=== PATIENT | female | born 1945 | race Caucasian/White ===

== ENCOUNTER 2019-04-26 15:06 | Emergency (ER) | payer MEDICARE, BC ==
[2019-04-26 15:34] VITALS: BP 126/66
--- NOTE | 2019-04-26 15:50 | UC ---
Skin Complaint HPI - HPI Summary HPI Summary: 73-year-old woman comes in with a chief complaint of blisters on her feet. Patient reports about a week ago she got bit by some insects and she ended up getting blisters. She tells me that this is a fairly common response to insect bites. She has 1 blister on the medial aspect of her right heel one just on her proximal right great toe and one on the lateral aspect of the left ankle. The patient is on Dilantin and the blister on the right medial foot turned red in the last 1 day. The one on a right great toe does have some erythema surrounding it. They itch there's been no pus drainage there has been some serous drainage from the right foot blister. No fevers or chills feels well otherwise. - History of Current Complaint Chief Complaint: UCSkin Time Seen by Provider: 04/26/19 15:35 Stated Complaint: RIGHT FOOT SKIN CONCERN Pain Intensity: 0 - Allergy/Home Medications Allergies/Adverse Reactions: Allergies Allergy/AdvReac Type Severity Reaction Status Date / Time gabapentin Allergy out of Verified 04/26/19 15:16 body experience morphine Allergy convulsions Verified 04/26/19 15:16 Home Medications: Home Medications Carvedilol TAB* [Coreg TAB*] 12.5 mg PO BID 04/26/19 [History Confirmed 04/26/19 ] Rosuvastatin Calcium 5 mg PO QPM 04/26/19 [History Confirmed 04/26/19] Ticagrelor* [Brilinta*] 90 mg PO BID 04/26/19 [History Confirmed 04/26/19] PMH/Surg Hx/FS Hx/Imm Hx Previously Healthy: Yes Endocrine History: Hypothyroidism Cardiovascular History: Hypertension Other Cardiovascular History: ON BR[place] - Surgical History Surgical History: Yes Surgery Procedure, Year, and Place: left arm surgery age 18yrs. partial hysterectomy - Family History Known Family History: Positive: Hypertension - Social History Alcohol Use: Daily Alcohol Amount: 1 wine daily Substance Use Type: None Smoking Status (MU): Former Smoker When Did the Patient Quit Smoking/Using Tobacco: 50 years ago - Immunization History Most Recent Influenza Vaccination: not this season Most Recent Tetanus Shot: Unknown, pt thinks within 10 yrs Review of Systems All Other Systems Reviewed And Are Negative: Yes Constitutional: Positive: Negative Skin: Positive: Other - SEE HPI Eyes: Positive: Negative ENT: Positive: Negative Respiratory: Positive: Negative Cardiovascular: Positive: Negative Gastrointestinal: Positive: Negative Motor: Positive: Negative Neurovascular: Positive: Negative Musculoskeletal: Positive: Negative Neurological: Positive: Negative Psychological: Positive: Negative Is Patient Immunocompromised?: No Physical Exam Triage Information Reviewed: Yes Appearance: Well-Appearing, No Pain Distress, Well-Nourished Vital Signs: Initial Vital Signs Temp 98 F 04/26/19 15:25 Pulse 73 04/26/19 15:25 Resp 20 04/26/19 15:25 BP 126/66 04/26/19 15:25 Pulse Ox 97 04/26/19 15:25 Vital Signs Reviewed: Yes Eye Exam: Normal Eyes: Positive: Conjunctiva Clear Neck: Positive: Supple Respiratory: Positive: No respiratory distress Musculoskeletal: Positive: Strength Intact, ROM Intact Neurological: Positive: Alert, Muscle Tone Normal Psychological: Positive: Age Appropriate Behavior Skin: Positive: Other - 3CM RAISED BLISTER WITH SEROSANGUINOUS FLUID WITH MILD DRAINAGE RT MEDIAL FOOT DISTAL TO ANKLE. CX & S DONE ON THIS FLUID. 1CM RAISED BLISTER WITH SEROUS FLUID ON AN ERYTHEMATOUS BASE ON PROXIMAL DORSAL RT GREAT TOE. 1CM RAISED BLISTER WITH SEROUS FLUID ON LEFT LATERAL PROXIMAL FOOT JUST DISTAL TO ANKLE. Course/Dx - Course Course Of Treatment: The patient reports she has a blister reaction to some insect bites. One blister has serosanguineous fluid in it indicating some bleeding. Patient is on brilinta. The drainage from the right foot blister I cultured. The blister on the right great toe does have an erythematous base bringing up the possibility of infection therefore patient's pain started on Keflex 500 mg by mouth 3 times a day for 7 days. Overall the plan is dressings and protection and letting the blisters heal up and get reevaluated if worse or any questions or concerns. - Diagnoses Provider Diagnosis: Blistered skin Discharge - Sign-Out/Discharge Documenting (check all that apply): Patient Departure All imaging exams completed and their final reports reviewed: No Studies - Discharge Plan Condition: Stable Disposition: HOME Prescriptions: Cephalexin CAP* [Keflex CAP*] 500 mg PO TID #21 cap Patient Education Materials: Blister (ED) Referrals: Sedrick Herman MD [Primary Care Provider] - Additional Instructions: FOLLOW UP WITH YOUR DOCTOR IF NOT COMPLETELY IMPROVED. GET RECHECKED SOONER IF YOUR CONDITION WORSENS; SIGNS OF INFECTION OR ANY QUESTIONS OR CONCERNS. - Billing Disposition and Condition Condition: STABLE Disposition: Home
== END 2019-04-26 15:59 | disposition home or self-care (01) ==
LOC: UCCORT 15:06
DX: S90.424A Blister (nonthermal), right lesser toe(s), initial encounter (principal); S90.822A Blister (nonthermal), left foot, initial encounter; S90.821A Blister (nonthermal), right foot, initial encounter; W57.XXXA Bitten or stung by nonvenomous insect and other nonvenomous arthropods, initial encounter; Y92.9 Unspecified place or not applicable; I10 Essential (primary) hypertension; Z79.01 Long term (current) use of anticoagulants; Z87.891 Personal history of nicotine dependence
CPT/HCPCS: 87070; 87205; 99212; G0463

== ENCOUNTER 2019-06-02 08:51 | Emergency (ER) | payer MEDICARE, BC ==
[2019-06-02 09:10] VITALS: BP 211/104
--- OUTSIDE RECORDS SUMMARY | 2019-06-02 09:14 | XMS REPORT | Continuity of Care Document ---
:1945 External Reference #:[id number] Author Name Jose Jinlie Care Team Providers Name Role Phone Sedrick Herman MD Primary Care Physician Unavailable Payers Date Identification Numbers Payment Provider Subscriber Effective: 2008 Policy Number: [id number] Medicare Blaire Meneses PayID: [id number] [address] [place] [address] Policy Number: [id number] [facility] Blaire Johnny Gideon Group Number: [id number] [address] [address] PayID: [id number] [place] [address] Problems Active Problems Provider Date Asthma without status asthmaticus Sedrick Herman MD Onset: 06/25/2011 Mitral valve disorder Sedrick Herman MD Onset: 06/25/2011 Benign hypertensive heart disease without congestive Sedrick Herman MD Onset: heart failure Hypothyroidism Sedrick Herman MD Onset: 06/25/2011 Inflammatory polyarthropathy Sedrick Herman MD Onset: 04/07/2012 Arthralgia of the pelvic region and thigh Sedrick Herman MD Onset: 03/30/2013 Family History Date Family Member(s) Observation Comments General Colon Polyps General Breast Cancer General Stomach Cancer General Diabetes Mellitus, II General Uterine Cancer General Depression Father due to Natural Causes () Father CAD, CABG Age 72 Mother Breast Cancer, Stomache Cancer,Low Glucose, Etoh,Tobacco First Brother Unknown First Sister Tumor Pituitary Gland, Polyposis Multiple Paternal Grandfather CAD/NV Paternal Grandmother Colon Cancer, Stomache Cancer Maternal Grandmother No Illnesses Aunt Breast Cancer Social History Type Date Description Comments Sex Unknown Marital Status Occupation Retired teacher ETOH Use Consumes 4 glasses of wine per week Tobacco Use Start: Unknown End: Unknown Patient is a former smoker Allergies, Adverse Reactions, Alerts Active Allergies Reaction Severity Comments Date Morphine 07/09/2008 Neurontin 07/09/2008 Lexapro 06/18/2014 Medications Active Medications SIG Qnty Indications Ordering Date Provider Carvedilol 1 by mouth twice 60tabs Sedrick Herman MD 05/10/2019 12.5mg Tablets a day Nitroglycerin 1 sl every 5 min 25tafestus Herman MD 05/10/2019 0.4mg as needed Tablets Sub Diovan HCT 1 by mouth every Sedrick Herman MD 07/22/2018 160-25mg day Tablets Vitamin D-3 Super daily otc Sedrick Herman MD 02/19/2010 Strength 2000Unit Tablets Loratadine 1 PO qd prn 90tafestus Herman MD 07/09/2008 10mg Tablets Aspir-81 qd 90tafestus Herman MD 07/09/[address] Briones 1 by mouth every 10tafestus Herman MD 5mg Tablets day Probiotic 1 by mouth every Unknown Capsules day as directed Synthroid tab 1 by mouth Unknown 88mcg Tablets every day on empty stomache Brilinta bid Unknown 90mg Tablets Rosuvastatin Calcium tab 1 by mouth Unknown 10mg every at bedtime Tablets History Medications Atorvastatin Calcium 1 by mouth every 90tafestus Herman MD 05/10/2019 - 10mg Tablets day 05/10/2019 Triamcinolone Acetonide apply twice a day 160gm Sedrick Herman MD 07/21/2018 - 0.025% to affected area 05/10/2019 Cream as needed Levofloxacin tab 1 by mouth 10tafestus Herman MD 04/27/2018 - 500mg Tablets every day 07/21/2018 Cefuroxime Axetil tab 1 by mouth 20tafestus Herman MD 06/21/2017 - 500mg Tablets twice a day 10 07/21/2018 days Diovan Tab 1 PO Q Day 90tafestus Herman MD 05/11/2016 - 160mg Tablets 07/22/2018 Lexapro 1 by mouth every 90tabs Sedrick Herman MD 06/13/2014 - 5mg Tablets day 06/18/2014 Diflucan tab 1 by mouth 3tabs Sedrick Herman MD 06/13/2014 - 200mg Tablets every day for 3 06/18/2014 days Nystatin-Triamcinolone apply affected 30gm Sedrick Herman MD 06/13/2014 - area as indicated 05/10/2017 856621-2.1Unit/GM-% Cream Diovan HCT 1 po qd 90tabs Sedrick Herman MD 04/05/2013 - 160-25mg Tablets 05/11/2016 Vesicare 1 po qd 90tabs Sedrick Herman MD 03/28/2013 - 10mg Tablets 05/31/2014 Zostavax injection as 1units Sedrick Herman MD 03/28/2013 - [id number]/0.65ML Solution ordered 05/10/2017 Rec Ceftin 1 po bid for 7 14tabs Sedrick Herman MD 04/07/2012 - 250mg Tablets days 03/28/2013 Synthroid 1 by mouth every 90tabs Sedrick Herman MD 03/31/2012 - 75mcg Tablets day on empty 07/21/2018 stomach Aciphex 1 po qd 90tafestus Herman MD 06/25/2011 - 20mg Tablets DR 10/09/2011 Ammonium Lactate as needed for dry 2unnatalie Herman MD 10/09/2010 - 12% Cream skin 05/10/2017 Ultram one every 6 hours 60tafestus Herman MD 10/06/2010 - 50mg Tablets as needed for 02/23/2011 pain Scopolomine Patch apply as directed 28unnatalie Herman MD 09/12/2010 - 1.5mg and change q 72 03/28/2013 hrs Paroxetine HCL 1 po qd needs to 90tafestus Herman MD 05/28/2010 - 10mg Tablets crush pills 10/09/2010 Lexapro 1 po qd 90tafestus Herman MD 05/26/2010 - 5mg Tablets 05/28/2010 Famvir 1 po tid 21tafestus Herman MD 02/19/2010 - 500mg Tablets 05/26/2010 Ceftin 1 po bid 10tabs Sedrick Herman MD 02/19/2010 - 500mg Tablets 05/26/2010 Levaquin 1 po qd 10tabs Elyn Ring, 09/19/2009 - 500mg Tablets 02/19/2010 Astelin 2 spray to each 5ml Elyn Ring, 06/18/2009 - 137mcg/[place] Solution nostril prn 06/18/2009 Fluocinonide-E apply to affected 15Grams Elleena Ring, 06/18/2009 - 0.05% Cream areas bid prn 02/19/2010 Promethazine HCL q 8 tabs prn 32tabs Elyn Virgil, 02/28/2009 - 25mg Tablets nausea 05/26/2010 Meclizine HCL 1-2 tabs po tid 180tabs Sedrick Herman, 02/28/2009 - 12.5mg Tablets prn 05/26/2010 Levaquin 1 po qd 10tabs Elyn MD Virgil 01/22/2009 - 500mg Tablets 02/28/2009 Scopolomine Patch aply prn 30units Sedrick Hreman MD 08/20/2008 - 1.5mg 05/26/2010 Diovan HCT 1 po qd 90tabs Elyn Ring, 08/06/2008 - 160/25mg Tablets 04/05/2013 Claritin 1 PO QHS 30tabs Sedrick Herman, 08/06/2008 - 10mg Tablets 02/28/2009 Cipro 1 PO bid 10tabs Elleena Herman MD 07/13/2008 - 500mg Tablets 08/06/2008 Ditropan XL 1 PO qd 90tabs Elyn MD Virgil 07/09/2008 - 10mg Tablets ER 24HR 06/18/2009 Mobic 1 po qd 90tabs Elyn Ring, 07/09/2008 - 7.5mg Tablets 10/09/2011 Synthroid 1 po qd 90tabs Elyn Ring, 07/09/2008 - 50mcg Tablets 03/31/2012 Hydrochlorothiazide 1 PO qd 90tabs Elyn Ring, 07/09/2008 - 25mg Tablets 08/06/2008 Diovan 1 PO qd 90tabs Elyn RingMD 07/09/2008 - 80mg Tablets 08/06/2008 Fosamax 1 qweek 12tabs Elyn RingMD 07/09/2008 - 70mg Tablets 02/19/2010 Astelin 2 [place] To Each 5ml Blake Loja - 137mcg/[place] Solution Nostril prn. In M.D. 06/21/2017 place of the Rhinocort Rhinocort Aqua 1 spray to each 3units Blake Loja - 32mcg/Act Suspension nare qpm M.D. 06/21/2017 Immunizations CPT Code Status Date Vaccine Reaction Lot # [id number] Given 07/27/2013 Influenza Virus Vaccine Done through [facility] [id number] (History Only) 21675 Given 03/28/2013 Tetanus,Diphtheria,Adut/ Adol Pertussis 93406 Given 11/01/2012 [place] [address] Given 06/18/2009 Influenza Vaccine [id number] Vital Signs Date Vital Result Comment 05/10/2019 12:13pm BP Systolic 120 mmHg BP Diastolic 74 mmHg Heart Rate 70 /min Height 62.5 inches 5'2.50" Weight 155.00 lb BMI (Body Mass Index) 27.9 kg/m2 O2 % BldC Oximetry 93 % 07/21/2018 1:03pm BP Systolic 120 mmHg BP Diastolic 74 mmHg Height 62.5 inches 5'2.50" Weight 153.00 lb BMI (Body Mass Index) 27.5 kg/m2 04/27/2018 10:07am BP Systolic 138 mmHg BP Diastolic 70 mmHg Weight 154.00 lb 06/21/2017 2:48pm BP Systolic 124 mmHg BP Diastolic 70 mmHg 05/10/2017 11:10am BP Systolic 138 mmHg BP Diastolic 80 mmHg Heart Rate 76 /min Height 62 inches 5'2" Weight 150.00 lb BMI (Body Mass Index) 27.4 kg/m2 05/11/2016 2:10pm BP Systolic 124 mmHg BP Diastolic 70 mmHg Height 65 inches 5'5" Weight 145.00 lb BMI (Body Mass Index) 24.1 kg/m2 04/15/2016 9:59am BP Systolic 128 mmHg BP Diastolic 70 mmHg 06/18/2014 9:26pm BP Systolic 132 mmHg BP Diastolic 76 mmHg 06/13/2014 3:53pm BP Systolic 132 mmHg BP Diastolic 80 mmHg 05/31/2014 11:19am BP Systolic 146 mmHg BP Diastolic 80 mmHg Height 64 inches 5'4" 03/30/2013 2:41pm BP Systolic 122 mmHg BP Diastolic 76 mmHg 03/28/2013 10:09am BP Systolic 130 mmHg BP Diastolic 80 mmHg Height 64 inches 5'4" Weight 140.00 lb BMI (Body Mass Index) 24.0 kg/m2 07/19/2012 1:27pm BP Systolic 120 mmHg BP Diastolic 75 mmHg 07/19/2012 1:04pm Weight 139.00 lb 04/07/2012 12:49pm BP Systolic 130 mmHg BP Diastolic 80 mmHg 03/31/2012 1:02pm BP Systolic 138 mmHg BP Diastolic 62 mmHg Weight 138.00 lb 10/09/2011 1:25pm BP Systolic 130 mmHg BP Diastolic 76 mmHg Height 63 inches 5'3" Weight 146.00 lb BMI (Body Mass Index) 25.9 kg/m2 06/25/2011 11:08am BP Systolic 120 mmHg BP Diastolic 70 mmHg Height 63 inches 5'3" Weight 139.00 lb BMI (Body Mass Index) 24.6 kg/m2 02/23/2011 10:32am BP Systolic 130 mmHg BP Diastolic 80 mmHg Height 63 inches 5'3" Weight 139.00 lb BMI (Body Mass Index) 24.6 kg/m2 10/06/2010 1:49pm BP Systolic 140 mmHg BP Diastolic 80 mmHg Weight 140.00 lb 06/09/2010 1:19pm BP Systolic 120 mmHg BP Diastolic 80 mmHg 05/26/2010 12:28pm BP Systolic 126 mmHg BP Diastolic 84 mmHg Weight 132.00 lb 02/19/2010 12:37pm BP Systolic 110 mmHg BP Diastolic 60 mmHg 02/19/2010 12:07pm Body Temperature 98.4 F Weight 136.00 lb 10/14/2009 3:13pm BP Systolic 122 mmHg BP Diastolic 60 mmHg Height 63 inches 5'3" Weight 146.00 lb BMI (Body Mass Index) 25.9 kg/m2 09/19/2009 10:17am BP Systolic 138 mmHg BP Diastolic 80 mmHg Body Temperature 98.2 F Weight 146.00 lb 06/18/2009 1:55pm BP Systolic 112 mmHg BP Diastolic 70 mmHg Weight 146.00 lb 02/28/2009 12:18pm BP Systolic 120 mmHg BP Diastolic 70 mmHg Height 63 inches 5'3" Weight 144.00 lb BMI (Body Mass Index) 25.5 kg/m2 01/22/2009 2:59pm BP Systolic 152 mmHg BP Diastolic 98 mmHg Body Temperature 97.7 F Height 63 inches 5'3" O2 % BldC Oximetry 95 % room air 11/26/2008 12:18pm BP Systolic 118 mmHg BP Diastolic 76 mmHg Height 63 inches 5'3" Weight 150.00 lb BMI (Body Mass Index) 26.6 kg/m2 08/20/2008 10:43am BP Systolic 132 mmHg BP Diastolic 70 mmHg Height 63 inches 5'3" Weight 146.00 lb BMI (Body Mass Index) 25.9 kg/m2 08/06/2008 2:41pm BP Systolic 132 mmHg BP Diastolic 74 mmHg Height 63 inches 5'3" Weight 148.00 lb BMI (Body Mass Index) 26.2 kg/m2 07/09/2008 2:42pm BP Systolic 122 mmHg BP Diastolic 88 mmHg Height 63 inches 5'3" Weight 144.00 lb BMI (Body Mass Index) 25.5 kg/m2 Results Test Date Facility Test Result H/L Range Note Wound 04/26/2019 [facility] - Metaps Wound/Misc SEE RESULT 1, 2 Culture/[facility] [address] [place] [address] Stain [phone] Laboratory test 04/12/2019 [facility] Troponin-I 0.037 ng/mL 3, [address] [place] [address] [phone] Aot Request 04/12/2019 [facility] Aot Request Test(s ) added 5, [address] [place] [address] [phone] Tests to be added: bnp, ddimer CBS W/Automated 04/12/2019 [facility] White 4.4 K/uL Normal 3.1-10.[address] [place] [address] Count [phone] Red Blood Count 4.90 M/uL Normal 3.90-5.40 Hemoglobin 14.7 gm/dL Normal 11.6-15.8 Hematocrit 43.0 % Normal 36.0-46.1 Mean Cell Volume 87.8 fl Normal 80.9-99.0 Mean Corpuscular HGB 30.0 pg Normal 25.9-32.7 Mean Corpuscular HGB Conc 34.2 g/dL Normal 30.8-34.3 Platelet Count 288 K/uL Normal 155-360 Red Cell Distri Width SD 42.7 fl Normal 36-47 Red Cell Distri Width %CV 13.3 % Normal 11.7-14.4 Mean Platelet Volume 11.4 fl Normal 8.9-12.4 Neut% 55.4 % Normal 40.4-72.8 Lymph % 28.5 % Normal 20.0-42.0 [place] % 9.3 % Normal 4.3-13.2 Eo% 5.5 % Normal 0.0-6.6 Bas% 1.1 % Normal 0.0-1.1 Immature Grans 0.2 % Normal 0.0-5.0 NRBC % 0.0 /100WBC < 10/ 100 WBC Neut# 2.43 K/uL Normal 1.8-7.0 Lymph # 1.25 K/uL Normal 1.0-4.0 [place] # 0.41 K/uL Normal 0.3-0.9 Eos # 0.24 K/uL Normal 0.0-0.5 Baso # 0.05 K/uL Normal 0.0-0.1 Immature Grans Absolute 0.01 K/uL NRBC # 0.00 K/uL Comprehensive Metabolic 04/22/2016 [facility] Glucose 88 mg/dL 74-[address] [place], [place] [id number] [phone] BUN 16 mg/dL 7-18 Creatinine 0.8 mg/dL 0.6-1.3 Glom Filtration Rate, Estimate >60 mL/min >60 If >60 mL/min >60 7 BUN/Creat 20.0 ratio Sodium 141 mmol/L 136-145 Potassium 3.4 mmol/L Low 3.5-5.1 Chloride 105 mmol/L 98-107 Carbon Dioxide 30 mmol/L 21-32 Anion Gap 6 mEq/L Low 8-16 Calcium 9.0 mg/dL 8.5-10.1 Total Protein 7.9 g/dL 6.4-8.2 Albumin 3.9 g/dL 3.4-5.0 Globulin 4.0 g/dL 1.9-4.3 Alb/Glob 1.0 ratio Bilirubin,Total 0.4 mg/dL 0.2-1.0 Sgot/Ast 28 U/L 15-37 SGPT/Alt 36 U/L 12-78 Alkaline Phosphatase 101 U/L 45-117 Laboratory test finding 04/22/2016 [facility] CK 136 U/L 26-[address] [place] [address] [phone] Troponin-I < 0.015 ng/mL 9 TSH Reflex FT4 and/or FT3 3.15 uIU/mL 0.30-4.20 10 CBC W/Automated 04/22/2016 [facility] White Blood 3.2 K/uL 3.1-10.[address] [place] [address] [phone] Red Blood Count 5.66 M/uL High 3.90-5.40 Hemoglobin 16.1 gm/dL High 11.6-15.8 Hematocrit 47.9 % High 36.0-46.1 Mean Cell Volume 84.6 fl 80.9-99.0 Mean Corpuscular HGB 28.4 pg 25.9-32.7 Mean Corpuscular HGB Conc 33.6 g/dL 30.8-34.3 Platelet Count 288 K/uL 155-360 Red Cell Distri Width SD 41.7 fl 3-47 Red Cell Distri Width %CV 13.4 % 11.7-14.4 Mean Platelet Volume 11.1 fL 8.9-12.4 Neut% 35.8 % Low 40.4-72.8 Lymph % 41.1 % 17.0-46.1 [place] % 13.9 % High 4.3-13.2 Eo% 7.3 % High 0.0-6.6 Bas% 1.9 % High 0.0-1.1 Neut# 1.13 K/uL Low 1.8-7.0 Lymph # 1.30 K/uL Low 1.8-7.0 [place] # 0.44 K/uL 0.3-0.9 Eos # 0.23 K/uL 0.0-0.5 Baso # 0.06 K/uL 0.0-0.1 Laboratory test 04/22/2016 [facility] D-Dimer, < 0.22 [address] Quantitative ug/[place] [address] [phone] Basic Metabolic 06/06/2014 [facility] Glucose 79 mg/ dL 76-[address] [place] [address] [phone] BUN 18 mg/dL 5-23 Creatinine 0.9 mg/dL 0.5-1.4 Glom Filtration Rate, Estimate >60 mL/min >60 If >60 mL/min >60 12 BUN/Creat 20.0 ratio Sodium 139 mmol/L 136-145 Potassium 3.5 mmol/L 3.5-5.1 Chloride 105 mmol/L 98-107 Carbon Dioxide 28 mEq/L 18-29 Anion Gap 10 mEq/L 8-16 Calcium 9.0 mg/dL 8.5-10.1 Laboratory test 06/06/2014 [facility] Thyroid Stim 1.79 uIU/mL 0.49-4.[address] [place] [place] [address] [phone] Free T4 1.27 ng/dL 0.71-1.85 CBS W/Automated 06/06/2014 [facility] White Blood 3.8 K/uL 3.1-10.[address] [place] [address] [phone] Red Blood Count 4.81 M/uL 3.90-5.40 Hemoglobin 14.5 gm/dL 11.6-15.8 Hematocrit 41.6 % 36.0-46.1 Mean Cell Volume 86.5 fl 80.9-99.0 Mean Corpuscular HGB 30.1 pg 25.9-32.7 Mean Corpuscular HGB Conc 34.9 g/dL High 30.8-34.3 Platelet Count 308 K/uL 155-360 Red Cell Distri Width SD 42.6 fl 3-47 Red Cell Distri Width %CV 13.7 % 11.7-14.4 Mean Platelet Volume 11.1 fL 8.9-12.4 Neut% 46.3 % 40.4-72.8 Lymph % 33.5 % 17.0-46.1 [place] % 12.9 % 4.3-13.2 Eo% 5.5 % 0.0-6.6 Bas% 1.8 % High 0.0-1.1 Neut# 1.75 K/uL 1.0-7.0 Lymph # 1.27 K/uL 0.8-3.4 [place] # 0.49 K/uL 0.3-0.9 Eos # 0.21 K/uL 0.0-0.5 Baso # 0.07 K/uL 0.0-0.1 Vitamin D, 25 03/22/2013 [facility] Vitamin 47 ng/mL 30-100 [address] D,25-Oh,[place] [address] [phone] Vitamin D,25-Oh,D3 47 ng/mL Vitamin D,25-Oh,D2 <4 ng/mL 14 Comp Metabolic Panel 03/22/2013 [facility] Sodium 140 mmol/L 135-[address] [place] [address] [phone] Potassium 4.1 mmol/L 3.5-5.3 Chloride 106 mmol/L 98-110 Carbon Dioxide 26 mmol/L 19-30 Calcium 9.6 mg/dL 8.6-10.4 Alkaline Phosphatase 70 U/L 33-130 Ast 24 U/L 10-35 Alt 18 U/L 6-40 Bilirubin,Total 0.6 mg/dL 0.2-1.2 Glucose 82 mg/dL 65-99 15 Urea Nitrogen 20 mg/dL 7-25 Creatinine 0.73 mg/dL 0.50-0.99 16 BUN/Creatinine Ratio 26.7 High 6-22 Protein,Total 6.8 g/dL 6.1-8.1 Albumin 4.2 g/dL 3.6-5.1 Globulin,Calculated 2.6 g/dL 1.9-3.7 A/G Ratio 1.6 1.0-2.5 Egfr Non-Afr. Turk[place] 84 ML/MIN/1.73M2 > Or=60 Egfr 97 ML/MIN/1.73M2 > Or=60 Lipid Panel 03/22/2013 [facility] Cholesterol 181 mg/dL 125-[address] [place] [address] [phone] HDL Cholesterol 57 mg/dL > Or=46 Cholesterol/HDL Ratio 3.2 < Or=5.0 LDL Chol,Calculated 100 mg/dL <130 17 Triglycerides 120 mg/dL <150 Non-HDL Cholesterol 124 mg/dL 18 TSH & T4,Free 03/22/2013 [facility] TSH 3.80 mIU/L 0.40-4.50 19 [address] [facility] [place] [address] [phone] T4,Free 1.4 ng/dL 0.8-1.8 20 CBC W/ Diff & PLT 03/22/2013 [facility] WBC 3.8 thous/L 3.8-10.[address] [place] [address] [phone] RBC 4.88 mill/L 3.80-5.10 Hemoglobin 14.8 g/dL 11.7-15.5 Hematocrit 44.2 % 35.0-45.0 MCV 90.7 FL 80.0-100.0 MCH 30.3 pg 27.0-33.0 MCHC 33.3 g/dL 32.0-36.0 RDW 14.4 % 11.0-15.0 Platelet Count 251 thous/L 140-400 Neutrophils,Absolute 2230 cells/L 0112-4391 Lymphocytes,Absolute 930 cells/L 850-3900 Monocytes,Absolute 370 cells/L 200-950 Eosinophils,Absolute 240 cells/L 15-500 Basophils,Absolute 30 cells/L 0-200 Total Neutrophils,% 59 % 38-80 Total Lymphocytes,% 24 % 15-49 Monocytes,% 10 % 0-13 Eosinophils,% 6 % 0-8 Basophils,% 1 % 0-2 Hepatic Function 03/22/2013 [facility] Alkaline Phosphatase 70 U/L 33- 130 Panel [address] [facility] [place] [address] [phone] Ast 24 U/L 10-35 Alt 18 U/L 6-40 Bilirubin,Total 0.6 mg/dL 0.2-1.2 Bilirubin,Direct 0.1 mg/dL < Or=0.2 Protein,Total 6.8 g/dL 6.1-8.1 Albumin 4.2 g/dL 3.6-5.1 Globulin,Calculated 2.6 g/dL 1.9-3.7 A/G Ratio 1.6 1.0-2.5 TSH & T4,Free 07/11/2012 [facility] TSH 2.37 mIU/L 0.40-4.50 [address] [place], [place] [id number] [phone] T4,Free 1.5 ng/dL 0.8-1.8 Laboratory test 03/11/2012 [facility] T3,Free 2.6 pg/mL 2.3-4.2 [address] [place], [place] [id number] [phone] TSH & T4,Free 03/11/2012 [facility] TSH 4.57 mIU/L High 0.40-4.50 [address] [place], [place] [id number] [phone] T4,Free 1.2 ng/dL 0.8-1.8 Comp Metabolic Panel 10/02/2011 [facility] Sodium 138 mmol/L 135-[address] [place], [place] [id number] [phone] Potassium 3.8 mmol/L 3.5-5.3 Chloride 103 mmol/L 98-110 Carbon Dioxide 28 mmol/L 21-33 Calcium 9.4 mg/dL 8.6-10.2 Alkaline Phosphatase 71 U/L 33-130 Ast 32 U/L 10-35 Alt 27 U/L 6-40 Bilirubin,Total 0.7 mg/dL 0.2-1.2 Glucose 72 mg/dL 65-99 23 Urea Nitrogen 25 mg/dL 7-25 Creatinine 0.70 mg/dL 0.60-1.18 BUN/Creatinine Ratio 35.0 High 6-22 Protein,Total 6.8 g/dL 6.2-8.3 Albumin 4.3 g/dL 3.6-5.1 Globulin,Calculated 2.5 g/dL 2.2-3.9 A/G Ratio 1.8 1.0-2.1 Egfr Non-Afr. Turk[place] 89 ML/MIN/1.73M2 > Or=60 Egfr 103 ML/MIN/1.73M2 > Or=60 CBC W/ Diff & PLT 10/02/2011 [facility] WBC 3.3 thous/L Low 3.8-10.[address] [place] [address] [phone] RBC 4.57 mill/L 3.80-5.10 Hemoglobin 13.9 g/dL 11.7-15.5 Hematocrit 41.3 % 35.0-45.0 MCV 90.4 FL 80.0-100.0 MCH 30.4 pg 27.0-33.0 MCHC 33.6 g/dL 32.0-36.0 RDW 13.8 % 11.0-15.0 Platelet Count 257 thous/L 140-400 Neutrophils,Absolute 1600 cells/L 0158-0930 Lymphocytes,Absolute 1150 cells/L 850-3900 Monocytes,Absolute 330 cells/L 200-950 Eosinophils,Absolute 160 cells/L 15-500 Basophils,Absolute 50 cells/L 0-200 Total Neutrophils,% 49 % 38-80 Total Lymphocytes,% 35 % 15-49 Monocytes,% 10 % 0-13 Eosinophils,% 5 % 0-8 Basophils,% 2 % 0-2 Hepatic Function 10/02/2011 [facility] Alkaline Phosphatase 71 U/L 33- 130 Panel [address] [place] [address] [phone] Ast 32 U/L 10-35 Alt 27 U/L 6-40 Bilirubin,Total 0.7 mg/dL 0.2-1.2 Bilirubin,Direct 0.1 mg/dL < Or=0.2 Protein,Total 6.8 g/dL 6.2-8.3 Albumin 4.3 g/dL 3.6-5.1 Globulin,Calculated 2.5 g/dL 2.2-3.9 A/G Ratio 1.8 1.0-2.1 Laboratory test 10/02/2011 [facility] LDL Cholesterol,Direct 89 mg/dL < 130 24 [address] [place] [address] [phone] Creatine Kinase,Total 163 U/L High 29-143 TSH & T4,Free 10/02/2011 [facility] TSH,3RD 3.20 mIU/L 0.40-4.[address] [place] [address] [phone] T4,Free 1.1 ng/dL 0.8-1.8 Laboratory test finding 07/01/2011 [facility] Esr,Westergren 1 MM/HR 0- [address] [place] [address] [phone] Ajde Screen Ifa W/RFL Titer Ifa NEGATIVE Negative Rheumatoid 07/01/2011 [facility] Rheumatoid Factor 12 IU/mL <14 26 Arthritis Diag PNL [address] [place] [address] [phone] CCP Igg <16 units <20 27 Basic Metabolic Panel 06/19/2011 [facility] Glucose 88 mg/dL 76-[address] [place] [address] [phone] BUN 20 mg/dL 5-23 Creatinine 0.7 mg/dL 0.5-1.4 Glom Filtration Rate, Estimate >60 mL/min >60 If >60 mL/min >60 28 BUN/Creat 28.5 Sodium 140 mEq/L 136-145 Potassium 3.7 mEq/L 3.5-5.1 Chloride 104 mEq/L 98-107 Carbon Dioxide 29 mEq/L 21-32 Anion Gap 11 mEq/L 8-16 Calcium 8.8 mg/dL 8.5-10.1 Laboratory test 06/19/2011 [facility] Cholesterol 183 mg/dL 120-200 [address] [place] [address] [phone] Triglycerides 171 mg/dL 0-210 30 Laboratory test 06/19/2011 [facility] HDL Cholesterol 54 mg/dL 32-96 31 finding [address] [facility] [place] [address] [phone] Direct LDL Cholesterol 106 mg/dL High 0-99 32 Vitamin D,25-Hydroxy 57.2 ng/mL 32.0-100.0 33 Thyroid Stim Hormone 3.82 uIU/mL 0.49-4.67 34 Free T4 0.88 ng/dL 0.71-1.85 35 Liver Function 02/16/2011 [facility] Total Protein 7.2 g/dL 6.3-8.0 Tests [address] [place] [address] [phone] Albumin 4.0 g/dL 3.5-5.0 Bilirubin,Total 0.5 mg/dL 0.2-1.2 Bilirubin,Direct 0.1 mg/dL 0.1-0.4 Bilirubin,Indirect 0.4 mg/dL 0.0-0.9 Sgot/Ast 29 U/L 16-40 SGPT/Alt 39 U/L 30-65 Alkaline Phosphatase 92 U/L 50-136 Globulin 3.2 gm/dL 1.9-4.3 Alb/Glob 1.3 Basic Metabolic Panel 02/16/2011 [facility] Glucose 97 mg/dL 76-[address] [place] [address] [phone] BUN 24 mg/dL High 5-23 Creatinine 0.8 mg/dL 0.5-1.4 Glom Filtration Rate, Estimate >60 mL/min >60 If >60 mL/min >60 36 BUN/Creat 30.0 Sodium 138 mEq/L 136-145 Potassium 3.5 mEq/L 3.5-5.1 Chloride 102 mEq/L 98-107 Carbon Dioxide 31 mEq/L 21-32 Anion Gap 9 mEq/L 8-16 Calcium 9.0 mg/dL 8.5-10.1 LDL Cholesterol 02/16/2011 [facility] Cholesterol 207 mg/dL High 120-[address] [place] [address] [phone] Triglycerides 128 mg/dL 0-210 HDL Cholesterol 58 mg/dL 32-96 LDL-Cholesterol 123 mg/dL 62-185 Laboratory test 02/16/2011 [facility] CK 123 U/L 26-190 [address] [place] [address] [phone] Laboratory test 09/15/2010 [facility] Thyroid Stim 2.54 0.49-4.67 [address] Hormone uIU/[place] [address] [phone] Free T4 1.10 ng/dL 0.71-1.85 39 CBS W/Automated 09/15/2010 [facility] White Blood 3.7 K/uL 3.1-10.[address] [place] [address] [phone] Red Blood Count 4.73 M/uL 3.90-5.40 Hemoglobin 13.4 gm/dL 11.6-15.8 Hematocrit 41.7 % 36.0-46.1 Mean Cell Volume 88.2 fl 80.9-99.0 Mean Corpuscular HGB 28.3 pg 25.9-32.7 Mean Corpuscular HGB Conc 32.1 g/dL 30.8-34.3 Platelet Count 312 K/uL 155-360 Red Cell Distri Width %CV 13.4 % 11.7-14.4 Mean Platelet Volume 11.8 fL 8.9-12.4 Neut% 47.5 % 40.4-72.8 Lymph % 31.6 % 17.0-46.1 [place] % 12.2 % 4.3-13.2 Eo% 6.5 % 0.0-6.6 Bas% 2.2 % High 0.0-1.1 Neut# 1.8 K/uL 1.0-7.0 Lymph # 1.2 K/uL 0.8-3.4 [place] # 0.5 K/uL 0.3-0.9 Eos # 0.2 K/uL 0.0-0.5 Baso # 0.1 K/uL 0.0-0.1 Red Cell Distri Width SD 42.1 fl 3-47 LDL Cholesterol 09/15/2010 [facility] Cholesterol 161 mg/dL 120-[address] [place], [place] [id number] [phone] Triglycerides 94 mg/dL 0-210 HDL Cholesterol 55 mg/dL 32-96 LDL-Cholesterol 87 mg/dL 62-185 Comprehensive Metabolic 09/15/2010 [facility] Glucose 79 mg/dL 76-[address] [place], [place] [id number] [phone] BUN 21 mg/dL 5-23 Creatinine 0.8 mg/dL 0.5-1.4 Glom Filtration Rate, Estimate >60 mL/min >60 If >60 mL/min >60 40 BUN/Creat 26.2 Sodium 140 mEq/L 136-145 Potassium 4.3 mEq/L 3.5-5.1 Chloride 103 mEq/L 98-107 Carbon Dioxide 28 mEq/L 21-32 Anion Gap 13 mEq/L 8-16 Calcium 8.6 mg/dL 8.5-10.1 Total Protein 6.8 g/dL 6.3-8.0 Albumin 3.7 g/dL 3.5-5.0 Globulin 3.1 gm/dL 1.9-4.3 Alb/Glob 1.2 Bilirubin,Total 0.8 mg/dL 0.2-1.2 Sgot/Ast 23 U/L 16-40 SGPT/Alt 34 U/L 30-65 Alkaline Phosphatase 84 U/L 50-136 Liver Function 09/15/2010 [facility] Total Protein 6.8 g/dL 6.3-8.[address] [place] [address] [phone] Albumin 3.7 g/dL 3.5-5.0 Bilirubin,Total 0.8 mg/dL 0.2-1.2 Bilirubin,Direct 0.2 mg/dL 0.1-0.4 Bilirubin,Indirect 0.6 mg/dL 0.0-0.9 Sgot/Ast 23 U/L 16-40 SGPT/Alt 34 U/L 30-65 Alkaline Phosphatase 84 U/L 50-136 Globulin 3.1 gm/dL 1.9-4.3 Alb/Glob 1.2 Basic Metabolic Panel 05/07/2010 [facility] Glucose 86 mg/dL 76-[address] [place] [address] [phone] BUN 18 mg/dL 5-23 Creatinine 0.7 mg/dL 0.5-1.4 Glom Filtration Rate, Estimate >60 mL/min >60 If >60 mL/min >60 41 BUN/Creat 25.7 Sodium 143 mEq/L 136-145 Potassium 4.1 mEq/L 3.5-5.1 Chloride 108 mEq/L High 98-107 Carbon Dioxide 31 mEq/L 21-32 Anion Gap 8 mEq/L 8-16 Calcium 8.8 mg/dL 8.5-10.1 Laboratory test 05/07/2010 [facility] Vitamin 41.8 32.0-100.0 [address] D,25-Hydroxy ng/[place] [address] [phone] Thyroid Stim Hormone 2.46 uIU/mL 0.49-4.67 Free T3 2.64 pg/mL 1.45-3.48 Free T4 0.96 ng/dL 0.71-1.85 TSH+Free T4 02/06/2010 [facility] Thyroid Stim 3.83 uIU/mL 0.49-4.67 (Brandon & [address] Hormone [facility] [place], [place] [id number] [phone] Free T4 0.85 ng/dL 0.71-1.85 Laboratory test 02/06/2010 [facility] Free T3 1.77 pg /mL 1.45-3.[address] [place], [place] [address] [phone] Basic Metabolic 02/06/2010 [facility] Glucose 89 mg/ dL 76-[address] [place], [place] [id number] [phone] BUN 18 mg/dL 5-23 Creatinine 0.7 mg/dL 0.5-1.4 Glom Filtration Rate, Estimate >60 mL/min >60 If >60 mL/min >60 43 BUN/Creat 25.7 Sodium 138 mEq/L 136-145 Potassium 3.7 mEq/L 3.5-5.1 Chloride 102 mEq/L 98-107 Carbon Dioxide 29 mEq/L 21-32 Anion Gap 11 mEq/L 8-16 Calcium 9.0 mg/dL 8.5-10.1 Laboratory 02/06/2010 [facility] Vitamin 30.1 Low 32.0-100.0 44 test finding [address] D,25-Hydroxy ng/mL [place], [place] [address] [phone] Vitamin D,1,25 Dihydroxy 42.5 pg/mL 10.0-75.0 45 Comprehensive Metabolic 09/13/2009 [facility] Glucose 78 mg/dL 76-[address] [place] [address] [phone] BUN 22 mg/dL 5-23 Creatinine 0.9 mg/dL 0.5-1.4 Glom Filtration Rate, Estimate >60 mL/min >60 If >60 mL/min >60 46 BUN/Creat 24.4 Sodium 138 mEq/L 136-145 Potassium 3.8 mEq/L 3.5-5.1 Chloride 100 mEq/L 98-107 Carbon Dioxide 30 mEq/L 21-32 Anion Gap 12 mEq/L 8-16 Calcium 9.7 mg/dL 8.5-10.1 Total Protein 7.1 g/dL 6.3-8.0 Albumin 3.8 g/dL 3.5-5.0 Globulin 3.3 gm/dL 1.9-4.3 Alb/Glob 1.2 Bilirubin,Total 0.7 mg/dL 0.2-1.2 Sgot/Ast 25 U/L 16-40 SGPT/Alt 42 U/L 30-65 Alkaline Phosphatase 86 U/L 50-136 LDL Cholesterol 09/13/2009 [facility] Cholesterol 190 mg/dL 120-[address] [place] [address] [phone] Triglycerides 115 mg/dL 0-210 HDL Cholesterol 52 mg/dL 32-96 LDL-Cholesterol 115 mg/dL 62-185 Laboratory test 09/13/2009 [facility] Bilirubin, Direct 0.1 mg/dL 0.1-0.[address] [place] [address] [phone] CK 89 U/L 26-190 Thyroid Stim Hormone 3.83 uIU/mL 0.49-4.67 Free T4 0.87 ng/dL 0.71-1.85 CBC W/Automated 09/13/2009 [facility] White Blood 5.9 K/uL 3.1-10.[address] [place] [address] [phone] Red Blood Count 4.63 M/uL 3.90-5.40 Hemoglobin 13.4 gm/dL 11.6-15.8 Hematocrit 40.2 % 36.0-46.1 Mean Cell Volume 86.8 fl 80.9-99.0 Mean Corpuscular HGB 28.9 pg 25.9-32.7 Mean Corpuscular HGB Conc 33.3 g/dL 30.8-34.3 Platelet Count 299 K/uL 155-360 Red Cell Distri Width %CV 13.0 % 11.7-14.4 Mean Platelet Volume 11.3 fL 8.9-12.4 Neut% 67.9 % 40.4-72.8 Lymph % 19.0 % 17.0-46.1 [place] % 7.8 % 4.3-13.2 Eo% 4.6 % 0.0-6.6 Bas% 0.7 % 0.0-1.1 Neut# 4.0 K/uL 1.0-7.0 Lymph # 1.1 K/uL 0.8-3.4 [place] # 0.5 K/uL 0.3-0.9 Eos # 0.3 K/uL 0.0-0.5 Baso # 0.0 K/uL 0.0-0.1 Red Cell Distri Width SD 40 fl 3-47 Basic Metabolic Panel 05/27/2009 [facility] Glucose 79 mg/dL 76-[address] [place] [address] [phone] BUN 16 mg/dL 5-23 Creatinine 0.8 mg/dL 0.5-1.4 Glom Filtration Rate, Estimate >60 mL/min >60 If >60 mL/min >60 47 BUN/Creat 20.0 Sodium 136 mEq/L 136-145 Potassium 4.3 mEq/L 3.5-5.1 Chloride 103 mEq/L 98-107 Carbon Dioxide 31 mEq/L 21-32 Anion Gap 6 mEq/L Low 8-16 Calcium 8.8 mg/dL 8.5-10.1 Laboratory test 05/27/2009 [facility] Vitamin 35.8 32.0-100.0 [address] D,25-Hydroxy ng/[place] [address] [phone] Vitamin D,1,25 Dihydroxy 70.4 pg/mL High 15.9-55.6 Thyroid Stim Hormone 3.45 uIU/mL 0.49-4.67 Free T3 2.43 pg/mL 1.45-3.48 Free T4 0.86 ng/dL 0.71-1.85 CBC 03/06/2009 [facility] White Blood Count 4.7 K/uL 3.1-10.[address] [place] [address] [phone] Red Blood Count 4.71 M/uL 3.90-5.40 Hemoglobin 13.4 gm/dL 11.6-15.8 Hematocrit 40.4 % 36.0-46.1 Mean Cell Volume 85.8 fl 80.9-99.0 Mean Corpuscular HGB 28.5 pg 25.9-32.7 Mean Corpuscular HGB Conc 33.2 g/dL 30.8-34.3 Platelet Count 304 K/uL 155-360 Red Cell Distri Width %CV 13.7 % 11.7-14.4 Mean Platelet Volume 11.9 fL 8.9-12.4 Laboratory 03/06/2009 [facility] Vitamin 29.5 Low 32.0-100.0 49 test finding [address] D,25-Hydroxy ng/[place] [address] [phone] Thyroid Stim Hormone 2.02 uIU/mL 0.49-4.67 Free T4 1.14 ng/dL 0.71-1.85 Liver Function 02/11/2009 [facility] Total Protein 7.2 g/dL 6.3-8.[address] [place] [address] [phone] Albumin 3.8 g/dL 3.5-5.0 Bilirubin,Total 0.6 mg/dL 0.2-1.2 Bilirubin,Direct 0.1 mg/dL 0.1-0.4 Bilirubin,Indirect 0.5 mg/dL 0.0-0.9 Sgot/Ast 22 U/L 16-40 SGPT/Alt 36 U/L 30-65 Alkaline Phosphatase 96 U/L 50-136 Globulin 3.4 gm/dL 1.9-4.3 Alb/Glob 1.1 Laboratory test 02/11/2009 [facility] CK 69 U/L 26 -[address] [place] [address] [phone] Basic Metabolic Panel 02/11/2009 [facility] Glucose 84 mg/dL 76-[address] [place] [address] [phone] BUN 21 mg/dL 5-23 Creatinine 0.8 mg/dL 0.5-1.4 Glom Filtration Rate, Estimate >60 mL/min >60 If >60 mL/min >60 50 BUN/Creat 26.2 Sodium 138 mEq/L 136-145 Potassium 4.0 mEq/L 3.5-5.1 Chloride 103 mEq/L 98-107 Carbon Dioxide 28 mEq/L 21-32 Anion Gap 11 mEq/L 8-16 Calcium 9.1 mg/dL 8.5-10.1 Laboratory test 02/11/2009 [facility] Glycohemoglobin A1c 6.1 % High 4.8-6.0 [address] [place], [place] [address] [phone] Vitamin D,1,25 Dihydroxy 33.9 pg/mL 15.9-55.6 LDL Cholesterol 02/11/2009 [facility] Cholesterol 189 mg/dL 120-[address] [place], [place] [address] [phone] Triglycerides 126 mg/dL 0-210 HDL Cholesterol 54 mg/dL 32-96 LDL-Cholesterol 110 mg/dL 62-185 CBC With 01/17/2009 [facility] White Blood 17.9 CUMM High 4.8- 10.8 Manual Diff [address] [place] [address] [phone] Red Cell Count 4.57 CUMM 4.2-5.4 Hemoglobin 13.3 g/dL 12.0-16.0 Hematocrit 39 % 35-47 Mean Corpuscular Volume 86 um3 79-97 Mean Corpuscular Hemoglob 29 pg 27-31 Mean Corpuscular HGB Cone 34 g/dL 32-36 Redcell Distribution WDTH 13 % 10.5-15 Platelet Count 302 CUMM 150-450 Mean Platelet Volume 9.4 um3 7.4-10.4 Polysegmented Neutrophil 75 % 38-83 Band Neutrophil 15 % High 0-8 Lymphocyte 6 % Low 25-47 Monocyte 4 % 0-13 Absolute Neutrophil Count 16.1 RBC Morphology NORMAL Laboratory test 01/17/2009 [facility] Erythrocyte Sed 9 MM/HR 0-[address] Rate [place], [place] [id number] [phone] CPK (Creatine Kinase) 111 U/L 0-170 TSH 1.58 MIU/ML 0.34-5.60 Laboratory test 11/20/2008 [facility] Thyroid Stim 2.92 uIU/mL 0.49-4.[address] [place] [place] [address] [phone] Free T3 1.79 pg/mL 1.45-3.48 Free T4 0.90 ng/dL 0.71-1.85 Basic Metabolic Panel 11/20/2008 [facility] Glucose 83 mg/dL 76-[address] [place], [place] [address] [phone] BUN 17 mg/dL 5-23 Creatinine 0.8 mg/dL 0.5-1.4 Glom Filtration Rate, Estimate >60 mL/min >60 If >60 mL/min >60 52 BUN/Creat 21.2 Sodium 142 mEq/L 136-145 Potassium 4.4 mEq/L 3.5-5.1 Chloride 105 mEq/L 98-107 Carbon Dioxide 28 mEq/L 21-32 Anion Gap 13 mEq/L 8-16 Calcium 9.7 mg/dL 8.5-10.1 Basic Metabolic Panel 08/06/2008 [facility] Glucose 81 mg/dL 76-[address] [place], [place] [address] [phone] BUN 24 mg/dL High 5-23 Creatinine 0.9 mg/dL 0.5-1.4 BUN/Creat 26.6 Sodium 137 mEq/L 136-145 Potassium 3.9 mEq/L 3.5-5.1 Chloride 101 mEq/L 98-107 Carbon Dioxide 30 mEq/L 21-32 Anion Gap 10 mEq/L 8-16 Calcium 9.3 mg/dL 8.5-10.1 Laboratory test 08/06/2008 [facility] Cancer 10.4 U/ mL 0.0-35.0 [address] Antigen (CA) [place] [address] [phone] Thyroid Stim Hormone 3.01 uIU/mL 0.49-4.67 Free T3 1.72 pg/mL 1.45-3.48 Free T4 0.91 ng/dL 0.71-1.85 Laboratory test 07/12/2008 [facility] Thyroid Stim 4.41 uIU/mL 0.49-4.[address] Hormone [place], [place] [address] [phone] Free T3 2.07 pg/mL 1.45-3.48 Free T4 1.01 ng/dL 0.71-1.85 CMP 07/12/2008 [facility] Glucose 86 mg/dL 76-[address] [place] [address] [phone] BUN 16 mg/dL 5-23 Creatinine 1.0 mg/dL 0.5-1.4 BUN/Creat 16.0 Sodium 139 mEq/L 136-145 Potassium 3.5 mEq/L 3.5-5.1 Chloride 99 mEq/L 98-107 Carbon Dioxide 30 mEq/L 21-32 Anion Gap 14 mEq/L 8-16 Calcium 9.3 mg/dL 8.5-10.1 Total Protein 7.5 g/dL 6.3-8.0 Albumin 4.0 g/dL 3.5-5.0 Globulin 3.5 gm/dL 1.9-4.3 Alb/Glob 1.1 Bilirubin,Total 0.5 mg/dL 0.2-1.2 Sgot/Ast 22 U/L 16-40 SGPT/Alt 40 U/L 30-65 Alkaline Phosphatase 85 U/L 50-136 LDL Cholesterol 07/12/2008 [facility] Cholesterol 208 mg/dL High 120-[address] [place], [place] [id number] [phone] Triglycerides 158 mg/dL 0-210 HDL Cholesterol 54 mg/dL 32-96 LDL-Cholesterol 122 mg/dL 62-185 Laboratory test 07/12/2008 [facility] CK 102 U/L 26-190 finding [address] [place] [address] [phone] CBC W/Automated 07/12/2008 [facility] White Blood 4.2 K/uL 3.1-10.7 Diff [address] [place] [address] [phone] Red Blood Count 5.02 M/uL 3.90-5.40 Hemoglobin 14.2 gm/dL 11.6-15.8 Hematocrit 43.1 % 36.0-46.1 Mean Cell Volume 85.9 fl 80.9-99.0 Mean Corpuscular HGB 28.3 pg 25.9-32.7 Mean Corpuscular HGB Conc 32.9 g/dL 30.8-34.3 Platelet Count 281 K/uL 155-360 Red Cell Distri Width %CV 12.8 % 11.7-14.4 Mean Platelet Volume 11.1 fL 8.9-12.4 Neut% 60.2 % 40.4-72.8 Lymph % 24.2 % 17.0-46.1 [place] % 8.4 % 4.3-13.2 Eo% 6.0 % 0.0-6.6 Bas% 1.2 % High 0.0-1.1 Neut# 2.5 K/uL 1.0-7.0 Lymph # 1.0 K/uL 0.8-3.4 [place] # 0.4 K/uL 0.3-0.9 Eos # 0.3 K/uL 0.0-0.5 Baso # 0.1 K/uL 0.0-0.1 Red Cell Distri Width SD 40 fl 3-47 Culture,Urine,Voided 07/09/2008 [facility] URINE-CC [address] [place] [address] [phone] Preliminary Report DNR Interim Report DNR Final Report DNR Organism #1 (SEE NOTE) 54 Organism #2 DNR Organism #3 DNR Organism #4 [id number] DNR Sensitivities 07/09/2008 [facility] Amoxicillin/Clavulanate <=8/4 Susceptible Org [address] [place] [address] [phone] Ampicillin 16 Intermediate Ampicillin/Sulbact <=8/4 Susceptible Aztreonam <=8 Susceptible Cefazolin <=8 Susceptible Cefepime <=8 Susceptible Cefotaxime <=2 Susceptible Ceftazidime <=1 Susceptible Ceftriaxone <=8 Susceptible Cefuroxime 8 Susceptible Cephalothin <=8 Susceptible Ciprofloxacin <=1 Susceptible Ertapenem <=2 Susceptible Gemifloxacin <=0.25 Susceptible Gentamicin 2 Susceptible Imipenem <=4 Susceptible Levofloxacin <=2 Susceptible Nitrofurantoin <=32 Susceptible Piperacillin/Tazobactam <=16 Susceptible Tetracycline <=4 Susceptible Ticarcillin/K Clavulanate <=16 Susceptible Tobramycin <=2 Susceptible Trimethoprim/Sulfa <=2/38 Susceptible 55 1 [id number] 2 SEE RESULT BELOW Name: BLAIRE MENESES : [address]: Mauro Manning MD Acct: [id number] Unit: [id number] AGE: 73 Location: [facility] Re04/26/19 SEX: F Status: DEP ER SPEC: [id number] LUIS: 04/26/19-[facility] DR: Mauro Manning MD REQ: [id number] RECD: 04/26/19-2007 STATUS: YFN VILLANUEVA DR: Sedrick Herman MD _ SOURCE: FOOT,RIGHT SPDESC: ORDERED: Culture Stain COMMENTS: [id number] Procedure Result Reported Site Wound/Misc Gram Stain Final 04/27/19- 0710 ML 1+ Epithelial Cells No Neutrophils Observed No Organisms Seen Wound/Misc Culture Final 04/28/19- 1234 ML No Growth Day 2 * ML - Main Lab . END OF REPORT DEPARTMENT OF PATHOLOGY, [address] [place] [address] Maikel Lindquist M.D. Director [facility] # [id number] 3 CHEST PAIN 4 0.0 - 0.045 ng/mL: Normal 0.046 - 0.5 ng/mL: Suggestive 0.6 - 1.5 ng/mL: Consistent 5 CHEST PAIN INTO THROAT AND UNDER ARM 6 Tests: bnp, ddimer Instructions: 7 Note: Persistent reduction for 3 months or more in an eGFR <60 mL/min/1.73 m2 defines CKD. Patients with eGFR values >/=60 mL/min/1.73 m2 may also have CKD if evidence of persistent proteinuria is present. The original MDRD equation for estimated GFR is not valid for patients less than 18 years of age. Additional information may be found at www.kdoqi.org. 8 SPECIMEN IS SLIGHTLY LIPEMIC 9 0.0 - 0.045 ng/mL: Normal 0.046 - 0.5 ng/mL: Suggestive 0.6 - 1.5 ng/mL: Consistent 10 SPECIMEN IS SLIGHTLY LIPEMIC QUERY: Reflex add FT3? Y QUERY: Reflex add FT4? Y 11 <=0.49 ug/mL - Low likelihood of DIC, DVT or Pulmonary Embolism >0.49 ug/mL - Additional testing should be done to rule out DIC, DVT, or Pulmonary embolism as clinically indicated. ([facility] has established a 97.89% negative predictive value for thrombotic disease when a cutoff value of 0.5 ug/mL is used.) 12 Note: Persistent reduction for 3 months or more in an eGFR <60 mL/min/1.73 m2 defines CKD. Patients with eGFR values >/=60 mL/min/1.73 m2 may also have CKD if evidence of persistent proteinuria is present. The original MDRD equation for estimated GFR is not valid for patients less than 18 years of age. Additional information may be found at www.[email or web address]. 13 FASTING 14 25-OHD3 indicates both endogenous production and supplementation. 25-OHD2 is an indicator of exogenous sources such as diet or supplementation. Therapy is based on measurement of Total 25-OHD, with levels <20 ng/mL indicative of Vitamin D deficiency while levels between 20 ng/mL and 30 ng/mL suggest insufficiency. Optimal levels are > or=30ng/mL. For more information on this test, go to http://[employer]/faq/25-OHVitaminD 15 GLUCOSE REFERENCE RANGE BASED ON FASTING SPECIMEN. 16 The upper reference limit for Creatinine is approximately 13% higher for people identified as -Turkmen. 17 LDL-CHOLESTEROL RISK CATEGORY* GOAL VERY HIGH (E.G. DIABETES + CVD) <70 MG/DL HIGH (DIABETICS; CHD RISK EQUIVALENTS) <100 MG/DL MODERATELY HIGH (MULTIPLE(2+) RISK FACTORS) <130 MG/DL 0 TO 1 RISK FACTORS <160 MG/DL * NCEP REPORT. CIRCULATION 2004; 110: 227-239 18 Target for non-HDL cholesterol is 30 mg/dL higher than LDL cholesterol target. 19 REFERENCE RANGES BELOW ARE APPLICABLE TO FEMALES FIRST TRIMESTER - 0.26 - 2.66 mIU/L SECOND TRIMESTER - 0.55 - 2.73 mIU/L THIRD TRIMESTER - 0.43 - 2.91 mIU/L 20 THE CURRENT LOT OF FREE T4 REAGENT AVAILABLE FROM THE [employer] PRODUCES RESULTS THAT ARE APPROXIMATELY 9% HIGHER THAN PREVIOUS REAGENT LOTS. PLEASE INTERPRET THESE RESULTS ACCORDINGLY. 21 REFERENCE RANGES BELOW ARE APPLICABLE TO FEMALES FIRST TRIMESTER - 0.26 - 2.66 mIU/L SECOND TRIMESTER - 0.55 - 2.73 mIU/L THIRD TRIMESTER - 0.43 - 2.91 mIU/L 22 REFERENCE RANGES BELOW ARE APPLICABLE TO FEMALES FIRST TRIMESTER - 0.26 - 2.66 mIU/L SECOND TRIMESTER - 0.55 - 2.73 mIU/L THIRD TRIMESTER - 0.43 - 2.91 mIU/L 23 GLUCOSE REFERENCE RANGE BASED ON FASTING SPECIMEN. 24 LDL-CHOLESTEROL RISK CATEGORY* GOAL VERY HIGH (E.G. DIABETES + CVD) <70 MG/DL HIGH (DIABETICS; CHD RISK EQUIVALENTS) <100 MG/DL MODERATELY HIGH (MULTIPLE(2+) RISK FACTORS) <130 MG/DL 0 TO 1 RISK FACTORS <160 MG/DL * NCEP REPORT. CIRCULATION 2004; 110: 227-239 25 REFERENCE RANGES BELOW ARE APPLICABLE TO FEMALES FIRST TRIMESTER - 0.20 - 4.70 mIU/L SECOND TRIMESTER - 0.30 - 4.10 mIU/L THIRD TRIMESTER - 0.40 - 2.70 mIU/L 26 IGM-RF POSITIVE/IGG ANTI-CCP POSITIVE: CONSISTENT WITH RHEUMATOID ARTHRITIS IN A PATIENT WITH POLYARTHRITIS. IN EARLY RA, THESE POSITIVE TEST RESULTS FOR BOTH RF AND ANTI-CCP ARE PREDICTIVE OF PROGRESSIVE JOINT DESTRUCTION. IGM-RF POSITIVE/IGG ANTI-CCP NEGATIVE: POSSIBLY CONSISTENT WITH RHEUMATOID ARTHRITIS IN A PATIENT WITH POLYARTHRITIS. POSITIVE RF AND NEGATIVE ANTI-CCP, HOWEVER, ARE MORE COMMONLY FOUND IN PATIENTS WITH OTHER RHEUMATIC DISEASES SUCH SYSTEMIC LUPUS ERYTHEMATOSUS, SCLERODERMA, PRIMARY SJOGREN'S SYNDROME, MIXED CONNECTIVE TISSUE DISEASE, POLYMYOSITIS/DERMATO- MYOSITIS AND CRYOGLOBULINEMIA. THESE TEST RESULTS MAY ALSO BE FOUND IN 5-6% OF HEALTHY OLDER INDIVIDUALS. IGM-RF NEGATIVE/IGG ANTI-CCP POSITIVE: CONSISTENT WITH RHEUMATOID ARTHRITIS IN A PATIENT WITH POLYARTHRITIS. A POSITIVE ANTI-CCP RESULT IS FREQUENTLY FOUND IN PATIENTS WITH EARLY RHEUMATOID ARTHRITIS AND MAY BE ASSOCIATED WITH PROGRESSION OF JOINT DESTRUCTION. IGM-RF NEGATIVE/IGG ANTI-CCP NEGATIVE: THESE SEROLOGIC RESULTS MAY BE FOUND IN 10-20% OF PATIENTS WITH POLYARTHRITIS THAT IS CLINICALLY AND RADIOLOGICALLY INDISTINGUISHABLE FROM RA. 27 IGM-RF POSITIVE; ANTI-CCP IGG POSITIVE: CONSISTENT WITH RHEUMATOID ARTHRITIS IN A PATIENT WITH POLYARTHRITIS. IN EARLY RA, THESE POSITIVE TEST RESULTS FOR BOTH RF AND ANTI-CCP ARE PREDICTIVE OF PROGRESSIVE JOINT DESTRUCTION. IGM-RF POSITIVE; ANTI-CCP IGG NEGATIVE: POSSIBLY CONSISTENT WITH RHEUMATOID ARTHRITIS IN A PATIENT WITH POLYARTHRITIS. POSITIVE RF AND NEGATIVE ANTI-CCP, HOWEVER, ARE MORE COMMONLY FOUND IN PATIENTS WITH OTHER RHEUMATIC DISEASES SUCH SYSTEMIC LUPUS ERYTHEMATOSUS, SCLERODERMA, PRIMARY SJOGREN'S SYNDROME, MIXED CONNECTIVE TISSUE DISEASE, POLYMYOSITIS/DERMATOMYOSITIS AND CRYOGLOBULINEMIA. THESE TEST RESUSLTS MAY ALSO BE FOUND IN 5-6% OF HEALTHY OLDER INDIVIDUALS. IGM-RF NEGATIVE; ANTI-CCP IGG POSITIVE: CONSISTENT WITH RHEUMATOID ARTHRITIS IN A PATIENT WITH POLYARTHRITIS. A POSITIVE ANTI-CCP RESULT IS FREQUENTLY FOUND IN PATIENTS WITH EARLY RHEUMATOID ARTHRITIS AND MAY BE ASSOCIATED WITH PROGRESSION OF JOINT DESTRUCTION. IGM-RF NEGATIVE; ANTI-CCP IGG NEGATIVE: THESE SEROLOGIC RESULTS MAY BE FOUND IN 10-20% OF PATIENTS WITH POLYARTHRITIS THAT IS CLINICALLY AND RADIOLOGICALLY INDISTINGUISHABLE FROM RA. CLASSIFICATION UNITS INTERPRETATION NEGATIVE <20 A NEGATIVE RESULT INDICATES NO CCP IGG ANTIBODY PRESENT OR LEVELS BELOW THE ASSAY CUTOFF. WEAK POSITIVE 20-39 A POSITIVE SEMI-QUANTITATIVE MODERATE POSITIVE 40-59 RESULT INDICATES THE PRESENCE OF CCP IGG ANTIBODIES OF INCREASING STRONG POSITIVE >59 LEVELS. 28 Note: Persistent reduction for 3 months or more in an eGFR <60 mL/min/1.73 m2 defines CKD. Patients with eGFR values >/=60 mL/min/1.73 m2 may also have CKD if evidence of persistent proteinuria is present. The original MDRD equation for estimated GFR is not valid for patients less than 18 years of age. Additional information may be found at [email or web address]. 29 QUERY: @[facility] Pat ID: [id number] QUERY: @[facility] Req #: [id number] 30 QUERY: @[facility] Pat ID: [id number] QUERY: @[facility] Req #: [id number] 31 QUERY: @[facility] Pat ID: [id number] QUERY: @[facility] Req #: [id number] 32 Performed at: [address] [id number] Spout Liner Helper: Matias See MD, Phone: [phone] 33 Recent studies consider the lower limit of 32.0 ng/mL to be a threshold for optimal health. Vic LYNCH. J Nutr. 2004;135(2):317-22. Performed at: RN - [facility] [address] [id number] Spout Liner Helper: Matias See MD, Phone: [phone] 34 QUERY: @[facility] Pat ID: [id number] QUERY: @[facility] Req #: [id number] 35 QUERY: @[facility] Pat ID: [id number] QUERY: @[facility] Req #: [id number] 36 Note: Persistent reduction for 3 months or more in an eGFR <60 mL/min/1.73 m2 defines CKD. Patients with eGFR values >/=60 mL/min/1.73 m2 may also have CKD if evidence of persistent proteinuria is present. The original MDRD equation for estimated GFR is not valid for patients less than 18 years of age. Additional information may be found at [email or web address]. 37 QUERY: @[facility] Pat ID: [id number] QUERY: @[facility] Req #: [id number] 38 QUERY: @[facility] Pat ID: [id number] QUERY: @[facility] Req #: [id number] QUERY: @[facility] Pat ID: [id number] QUERY: @[facility] Req #: [id number] 40 Note: Persistent reduction for 3 months or more in an eGFR <60 mL/min/1.73 m2 defines CKD. Patients with eGFR values >/=60 mL/min/1.73 m2 may also have CKD if evidence of persistent proteinuria is present. The original MDRD equation for estimated GFR is not valid for patients less than 18 years of age. Additional information may be found at [email or web address]. 41 Note: Persistent reduction for 3 months or more in an eGFR <60 mL/min/1.73 m2 defines CKD. Patients with eGFR values >/=60 mL/min/1.73 m2 may also have CKD if evidence of persistent proteinuria is present. The original MDRD equation for estimated GFR is not valid for patients less than 18 years of age. Additional information may be found at [email or web address]. 42 Recent studies consider the lower limit of 32.0 ng/mL to be a threshold for optimal health. Vic LYNCH. J Nutr. 2004;135(2):317-22. Performed at: [address] [id number] Spout Liner Helper: Matias See MD, Phone: [phone] 43 Note: Persistent reduction for 3 months or more in an eGFR <60 mL/min/1.73 m2 defines CKD. Patients with eGFR values >/=60 mL/min/1.73 m2 may also have CKD if evidence of persistent proteinuria is present. The original MDRD equation for estimated GFR is not valid for patients less than 18 years of age. Additional information may be found at [email or web address]. 44 Recent studies consider the lower limit of 32.0 ng/mL to be a threshold for optimal health. [facility]. J Nutr. 2004;135(2):317-22. 45 Performed at: [address] [id number] Spout Liner Helper: Matias See MD Performed at: [address] [id number] Spout Liner Helper: Mauro Wells MD 46 Note: Persistent reduction for 3 months or more in an eGFR <60 mL/min/1.73 m2 defines CKD. Patients with eGFR values >/=60 mL/min/1.73 m2 may also have CKD if evidence of persistent proteinuria is present. The original MDRD equation for estimated GFR is not valid for patients less than 18 years of age. Additional information may be found at [email or web address]. 47 Note: Persistent reduction for 3 months or more in an eGFR <60 mL/min/1.73 m2 defines CKD. Patients with eGFR values >/=60 mL/min/1.73 m2 may also have CKD if evidence of persistent proteinuria is present. The original MDRD equation for estimated GFR is not valid for patients less than 18 years of age. Additional information may be found at [email or web address]. 48 Recent studies consider the lower limit of 32.0 ng/mL to be a threshold for optimal health. [facility]. J Nutr. 2004;135(2):317-22. 49 Recent studies consider the lower limit of 32.0 ng/mL to be a threshold for optimal health. [facility] . J Nutr. 2005 Dec;135(2):317-22. 50 Note: Persistent reduction for 3 months or more in an eGFR <60 mL/min/1.73 m2 defines CKD. Patients with eGFR values >/=60 mL/min/1.73 m2 may also have CKD if evidence of persistent proteinuria is present. The original MDRD equation for estimated GFR is not valid for patients less than 18 years of age. Additional information may be found at [email or web address]. 51 Current guidelines recommend a treatment goal of <7% for diabetic patients. This method will measure glycosylated hemoglobin variants, HbS, HbG, HbH, HbWayne, HbC, HbE, etc. Other hemoglobin- opathies may give incorrect results with this test. Note change in expected values for healthy individuals 52 Note: Persistent reduction for 3 months or more in an eGFR <60 mL/min/1.73 m2 defines CKD. Patients with eGFR values >/=60 mL/min/1.73 m2 may also have CKD if evidence of persistent proteinuria is present. The original MDRD equation for estimated GFR is not valid for patients less than 18 years of age. Additional information may be found at [email or web address]. 53 Andres ICMA methodology Values obtained with different assay methods or kits cannot be used interchangeably. Results cannot be interpreted as absolute evidence of the presence or absence of malignant disease. 54 ESCHERICHIA COLI GREATER THAN 100,000 CFU/ML 55 No collection date was received. We have used the date the specimen was received by [employer] as the collection date. If this is incorrect, please contact us at . Procedures Date Code Description Status 06/05/2014 47667 Echocardiography Completed 03/24/2012 [id number] Bone Mineral Density Test Completed 03/24/2012 28782 Bone Density,Vertebral Fracture Completed 03/24/2012 80999 Bone Density Completed 10/02/2011 13149 Holter Monitor Office Completed 09/28/2011 03992 Non-Invcorrotid/Comp /Bilat Study Completed 09/28/2011 38382 Echocardiography Completed 09/15/2010 90255 EKG-Tracing & Report Completed 09/15/2010 25299 Holter Monitor Office Completed 09/15/2010 22098 PVR-Atrerial Study Completed 09/15/2010 42885 PFT Evaluation Completed 09/02/2010 30412 Non-Invcorrotid/Comp /Bilat Study Completed 09/02/2010 58523 Echocardiography Completed 09/19/2009 17601 Holter Monitor Office Completed 09/19/2009 19546 EKG-Tracing & Report Completed 09/18/2009 79360 Bone Density,Vertebral Fracture Completed 09/18/2009 04926 Bone Density Completed 08/06/2009 11300 Non-Invcorrotid/Comp /Bilat Study Completed 08/06/2009 65008 Echocardiography Completed 07/19/2008 08723 Non-Invcorrotid/Comp /Bilat Study Completed 07/19/2008 24717 Doppler Color Flow Velocity Completed 07/19/2008 82017 Doppler/ECHO Completed 07/19/2008 82712 ECHO-2D W/Wo M-Mode Completed 03/01/2006 [id number] Colonoscopy Completed Encounters Type Date Location Provider Dx Diagnosis Office Visit 07/21/2018 12:15p Main Office Sedrick Herman MD L30.9 Dermatitis , unspecified I11.9 Hypertensive heart disease without heart failure E03.9 Hypothyroidism, unspecified Office Visit 04/27/2018 10:00a Main Office Sedrick Herman MD W54.0xxA Bitten by dog, initial encounter Office Visit 06/21/2017 2:45p Main Office Sedrick Herman MD S80.861S Insect bite (nonvenomous), right lower leg, sequela Office Visit 05/10/2017 10:45a Main Office Sedrick Herman MD I11.9 Hypertensive heart disease without heart failure E78.5 Hyperlipidemia, unspecified E03.9 Hypothyroidism, unspecified Office Visit 05/11/2016 1:45p Main Office Sedrick Herman MD R53.83 Other fatigue R00.2 Palpitations I11.9 Hypertensive heart disease without heart failure E87.6 Hypokalemia E78.5 Hyperlipidemia, unspecified Office Visit 04/15/2016 9:15a Main Office Sedrick Herman MD R07.9 Chest pain, unspecified R00.2 Palpitations E03.9 Hypothyroidism, unspecified I11.9 Hypertensive heart disease without heart failure Office Visit 06/13/2014 4:00p Main Office Sedrick Herman MD 786.50 Pain Chest Unspec 424.0 Mitral Valve Disorder 112.90 Candidiasis 564.1 Irritable Bowel Syndrome 300.00 Anxiety State Unspec GENERAL General Office Visit 05/31/2014 10:45a Main Office Sedrick Herman MD 780.79 Malaise And Fatigue Other 786.50 Pain Chest Unspec 244.90 Hypothyroidism (Aquired) 402.10 Hypertensive Heart Disease Benign W/O Heart Failure GENERAL General Office Visit 03/30/2013 2:45p Main Office Sedrick Herman MD 719.45 Pain Joint Pelvic Region & Thigh GENERAL General Office Visit 03/28/2013 10:00a Main Office Sedrick Herman MD 244.90 Hypothyroidism (Aquired) 402.10 Hypertensive Heart Disease Benign W/O Heart Failure 268.9 Vitamin D Deficiency Unspec 714.90 Arthritis, Inflammatory V72.2 Examination Dental V72.0 Examination Eyes & Vision V70.0 Examination General Medical Routine AT Health Care Facility V06.5 Tetanus Diphtheria (DT) GENERAL General Office Visit 07/19/2012 1:00p Main Office Sedrick Herman MD 244.90 Hypothyroidism (Aquired) 402.10 Hypertensive Heart Disease Benign W/O Heart Failure 268.9 Vitamin D Deficiency Unspec 473.90 Sinusitis GENERAL General Office Visit 04/07/2012 12:45p Main Office Sedrick Herman MD 714.90 Arthritis, Inflammatory 682.90 Cellulitis GENERAL General Office Visit 03/31/2012 12:45p Main Office Sedrick Herman MD 244.90 Hypothyroidism (Aquired) 268.9 Vitamin D Deficiency Unspec 402.10 Hypertensive Heart Disease Benign W/O Heart Failure 714.90 Arthritis, Inflammatory GENERAL General Office Visit 10/09/2011 1:15p Main Office Sedrick Herman MD 424.0 Mitral Valve Disorder 493.90 Asthma Unspec W/O Status Asthmaticus 402.10 Hypertensive Heart Disease Benign W/O Heart Failure V72.2 Examination Dental 244.90 Hypothyroidism (Aquired) 268.9 Vitamin D Deficiency Unspec 733.90 Osteopenia Unspec V70.0 Examination General Medical Routine AT Health Care Facility GENERAL General Office Visit 06/25/2011 11:00a Main Office Sedrick Herman MD 493.90 Asthma Unspec W/O Status Asthmaticus 424.0 Mitral Valve Disorder 428.32 Diastolic Heart Failure Chronic 402.10 Hypertensive Heart Disease Benign W/O Heart Failure V72.2 Examination Dental 244.90 Hypothyroidism (Aquired) V62.3 Educational Circumstances Problem 268.9 Vitamin D Deficiency Unspec 785.10 Palpitations 433.10 Occlusion & Stenosis Carotid Artery W/O Cerebral Infarction 733.90 Osteopenia Unspec 454.9 Varicose Veins Lower Extrem Asymptomatic Varicose Veins 714.90 Arthritis, Inflammatory GENERAL General Office Visit 02/23/2011 10:15a Main Office Sedrick Herman MD 493.90 Asthma Unspec W/O Status Asthmaticus 424.0 Mitral Valve Disorder 428.32 Diastolic Heart Failure Chronic 402.10 Hypertensive Heart Disease Benign W/O Heart Failure V72.2 Examination Dental V72.0 Examination Eyes & Vision 272.9 Lipoid Metabolism Disorders Unspec 244.90 Hypothyroidism (Aquired) 268.9 Vitamin D Deficiency Unspec V62.3 Educational Circumstances Problem GENERAL General Office Visit 10/06/2010 1:30p Main Office Sedrick Herman MD 493.90 Asthma Unspec W/O Status Asthmaticus 424.0 Mitral Valve Disorder 428.32 Diastolic Heart Failure Chronic 402.10 Hypertensive Heart Disease Benign W/O Heart Failure V72.2 Examination Dental V72.0 Examination Eyes & Vision V70.0 Examination General Medical Routine AT Health Care Facility GENERAL General Office Visit 06/09/2010 1:15p Main Office Sedrick Herman MD 311 Depressive Disorder Not Elsewhere Spec 402.10 Hypertensive Heart Disease Benign W/O Heart Failure GENERAL General Office Visit 05/26/2010 12:00p Main Office Sedrick Herman MD 311 Depressive Disorder Not Elsewhere Spec 402.10 Hypertensive Heart Disease Benign W/O Heart Failure 428.32 Diastolic Heart Failure Chronic 424.0 Mitral Valve Disorder 493.90 Asthma Unspec W/O Status Asthmaticus 244.90 Hypothyroidism (Aquired) V72.2 Examination Dental 433.10 Occlusion & Stenosis Carotid Artery W/O Cerebral Infarction 268.9 Vitamin D Deficiency Unspec 785.10 Palpitations GENERAL General Office Visit 02/19/2010 11:45a Main Office Sedrick Herman MD 465.9 URI Upper Respiratory Infections Acute Unspec Sites 402.10 Hypertensive Heart Disease Benign W/O Heart Failure 428.32 Diastolic Heart Failure Chronic 424.0 Mitral Valve Disorder 493.90 Asthma Unspec W/O Status Asthmaticus 244.90 Hypothyroidism (Aquired) GENERAL General Office Visit 10/14/2009 2:15p Main Office Sedrick Herman MD 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 402.10 Hypertensive Heart Disease Benign W/O Heart Failure 428.32 Diastolic Heart Failure Chronic 424.0 Mitral Valve Disorder 493.90 Asthma Unspec W/O Status Asthmaticus V72.2 Examination Dental V72.0 Examination Eyes & Vision V70.0 Examination General Medical Routine AT Health Care Facility 244.90 Hypothyroidism (Aquired) GENERAL General Office Visit 09/19/2009 10:00a Main Office Sedrick Herman MD 785.10 Palpitations 473.90 Sinusitis 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 244.90 Hypothyroidism (Aquired) 402.10 Hypertensive Heart Disease Benign W/O Heart Failure GENERAL General Office Visit 06/18/2009 1:45p Main Office Sedrick Herman MD 244.90 Hypothyroidism (Aquired) 402.10 Hypertensive Heart Disease Benign W/O Heart Failure 424.0 Mitral Valve Disorder 493.90 Asthma Unspec W/O Status Asthmaticus 733.00 Osteoporosis Unspec 785.10 Palpitations 443.9 Peripheral Vascular Disease Unspec V04.81 Need For Prophylactic Vaccination & Inoculation/Influenza GENERAL General Office Visit 02/28/2009 12:00p Main Office Sedrick Herman MD 244.90 Hypothyroidism (Aquired) 402.10 Hypertensive Heart Disease Benign W/O Heart Failure 424.0 Mitral Valve Disorder 493.90 Asthma Unspec W/O Status Asthmaticus 733.00 Osteoporosis Unspec GENERAL General Office Visit 01/22/2009 2:45p Main Office Sedrick Herman MD 460.00 Upper Respiratory Infection 473.9 Sinusitis Chronic Unspec Office Visit 11/26/2008 12:00p Main Office Sedrick Herman MD 244.90 Hypothyroidism (Aquired) 402.10 Hypertensive Heart Disease Benign W/O Heart Failure 493.90 Asthma Unspec W/O Status Asthmaticus 733.00 Osteoporosis Unspec GENERAL General Office Visit 08/20/2008 10:30a Main Office Sedrick Herman MD 244.90 Hypothyroidism (Aquired) 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 402.10 Hypertensive Heart Disease Benign W/O Heart Failure V16.3 History Family Malignant Neoplasm Breast 733.00 Osteoporosis Unspec 994.6 Effects Of Motion Sickness 380.4 Impacted Cerumen GENERAL General Office Visit 08/06/2008 2:30p Main Office Sedrick Herman MD 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 244.90 Hypothyroidism (Aquired) 402.10 Hypertensive Heart Disease Benign W/O Heart Failure V72.2 Examination Dental V70.0 Examination General Medical Routine AT Health Care Facility V16.3 History Family Malignant Neoplasm Breast V16.8 History Family Malignant Neoplasm Spec Other GENERAL General Office Visit 07/09/2008 2:15p Main Office Sedrick Herman MD 244.90 Hypothyroidism (Aquired) 785.1 Palpitations 402.10 Hypertensive Heart Disease Benign W/O Heart Failure 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 SHE WILL CALL DR. GILMORE [facility] AND [facility] PRE AND POST HOSPTIAL [id number] Hypothyroidism, unspecifiedComments:MANAGED BY [place] PROVIDER CONT SYNTHROID 88 MCGI11.9 Hypertensive heart disease without heart failureComments: QQIBFWK62.5 Hyperlipidemia, unspecifiedComments:NOW ON [facility] SEPTAllNew Medication:Carvedilol 12.5 mg - 1 by mouth twice a dayNitroglycerin 0.4 mg - 1 sl every 5 min as neededAtorvastatin Calcium 10 mg - 1 by mouth every dayComments:RTO SEPTLIPIDS,CBC,CMP TSH FT4 BEFORE VISIT
--- OUTSIDE RECORDS SUMMARY | 2019-06-02 09:15 | XMS REPORT | Continuity of Care Document ---
:1945 External Reference #:[id number] Author Name Manuelito Aun Care Team Providers Name Role Phone Sedrick Herman MD Primary Care Physician Unavailable Payers Date Identification Numbers Payment Provider Subscriber Effective: 2008 Policy Number: [id number] Medicare Blaire Meneses PayID: [id number] [address] [place] [address] Policy Number: [id number] [facility] Blaire Turner [employer] Number: [id number] [address] [address] PayID: [id number] [place] [address] Problems Active Problems Provider Date Asthma without status asthmaticus Sedrick Herman MD Onset: 06/25/2011 Mitral valve disorder Sedrick Herman MD Onset: 06/25/2011 Benign hypertensive heart disease without congestive Sedrick Herman MD Onset: heart failure Hypothyroidism Sedrick eHrman MD Onset: 06/25/2011 Inflammatory polyarthropathy Sedrick Herman [...] Tumor Pituitary Gland, Polyposis Multiple Paternal Grandfather CAD/AR Paternal Grandmother Colon Cancer, Stomache Cancer Maternal [...] MD 05/10/2019 0.4mg as needed Tablets Sub Atorvastatin Calcium 1 by mouth every 90tafestus Herman MD 05/10/2019 10mg day Tablets Diovan HCT 1 by mouth every Sedrick Heramn MD 07/22/2018 160-25mg day Tablets Vitamin D-3 [...] 88mcg Tablets every day on empty stomache History Medications Triamcinolone Acetonide apply twice a day 160gm Sedrick Herman MD 07/21/2018 - 0.025% to affected area 05/10/2019 Cream as needed Levofloxacin tab 1 by mouth 10tafestus Herman MD 04/27/2018 - 500mg Tablets every day 07/21/2018 Cefuroxime Axetil tab 1 by mouth 20uziel Herman MD 06/21/2017 - 500mg Tablets twice a day 10 07/21/2018 days Diovan Tab 1 PO Q Day 90uziel Herman MD 05/11/2016 - 160mg Tablets 07/22/2018 Lexapro 1 by mouth every 90tafestus Herman MD 06/13/2014 - 5mg Tablets day 06/18/2014 Diflucan tab 1 by mouth 3tabs Sedrick Herman, 06/13/2014 - 200mg Tablets every day for 3 06/18/2014 days Nystatin-Triamcinolone apply affected 30gm Sedrick Herman MD 06/13/2014 - area as indicated 05/10/2017 760542-8.1Unit/GM-% Cream Diovan HCT 1 po qd 90tabs Sedrick Herman MD 04/05/2013 - 160-25mg Tablets 05/11/2016 Vesicare 1 po qd 90tabs Sedrick Herman MD 03/28/2013 - 10mg Tablets 05/31/2014 Zostavax injection as 1units Sedrick Herman MD 03/28/2013 - [id number]/0.65ML Solution ordered 05/10/2017 Rec Ceftin 1 po [...] Tablets 05/26/2010 Levaquin 1 po qd 10tabs Sedrick Herman MD 09/19/2009 - 500mg Tablets 02/19/2010 Astelin 2 spray to each 5ml Elyn Ring, 06/18/2009 - 137mcg/[place] Solution nostril prn 06/18/2009 Fluocinonide-E apply to affected 15Grams Elyn Ring, 06/18/2009 - 0.05% Cream areas bid prn 02/19/2010 Promethazine HCL q 8 tabs prn 32tabs Elyn Ring, 02/28/2009 - 25mg Tablets nausea 05/26/2010 Meclizine HCL 1-2 tabs po tid 180tabs Elyn Virgil, 02/28/2009 - 12.5mg Tablets prn 05/26/2010 Levaquin 1 po qd 10tabs Elyn Ring, 01/22/2009 - 500mg Tablets 02/28/2009 Scopolomine Patch aply prn 30units Elyn Virgil, 08/20/2008 - 1.5mg 05/26/2010 Diovan HCT 1 po qd 90tabs Elyn Ring, 08/06/2008 - 160/25mg Tablets 04/05/2013 Claritin 1 PO QHS 30tabs Elyn Ring, 08/06/2008 - 10mg Tablets 02/28/2009 Cipro 1 PO bid 10tabs Elyn Ring, 07/13/2008 - 500mg Tablets 08/06/2008 Ditropan XL 1 PO qd 90tabs Elyn Ring, 07/09/2008 - 10mg Tablets ER 24HR 06/18/2009 Mobic 1 po qd 90tabs Elyn Ring, 07/09/2008 - 7.5mg Tablets 10/09/2011 Synthroid 1 po qd 90tabs Elyn Ring, 07/09/2008 - 50mcg Tablets 03/31/2012 Hydrochlorothiazide 1 PO qd 90tabs Elyn Ring, 07/09/2008 - 25mg Tablets 08/06/2008 Diovan 1 PO qd 90tabs Elyn Ring, 07/09/2008 - 80mg Tablets 08/06/2008 Fosamax 1 qweek 12tabs Elyn Ring, 07/09/2008 - 70mg Tablets 02/19/2010 Astelin 2 [place] To Each 5ml Blake Loja - 137mcg/[place] Solution Nostril prn. In M.DRosemarie 06/21/2017 place of the Rhinocort Rhinocort Aqua 1 spray to each 3units Blake Loja - 32mcg/Act Suspension nare qpm M.D. 06/21/2017 Immunizations CPT Code Status Date Vaccine Reaction Lot # 76706 Given 07/27/2013 Influenza Virus Vaccine Done through [facility] [id number] (History Only) 64184 Given 03/28/2013 Tetanus,Diphtheria,Adut/ Adol Pertussis 29476 Given 11/01/2012 [place] [address] Given 06/18/2009 Influenza Vaccine [id number] Vital Signs Date Vital Result Comment 05/10/2019 [...] Test Result H/L Range Note Wound 04/26/2019 [employer] Wound/Misc SEE RESULT 1, 2 [facility] [address] [place] [place] [address] Stain [phone] Laboratory test 04/12/2019 [facility] Troponin-I 0.037 ng/mL 3, [address] [place] [address] [phone] Aot Request 04/12/2019 [facility] Aot Request Test(s ) added 5, [address] [place] [address] [phone] Tests to be added: bnp, ddimer CBS W/Automated 04/12/2019 [facility] White 4.4 K/uL Normal 3.1-10.[address] [place] [address] Count [phone] Red Blood Count 4.90 M/uL Normal 3.90-5.40 [...] 40.4-72.8 Lymph % 28.5 % Normal 20.0-42.0 [place] % 9.3 % Normal 4.3-13.2 Eo% 5.5 % Normal 0.0-6.6 Bas% 1.1 % Normal 0.0-1.1 Immature Grans 0.2 % Normal 0.0-5.0 NRBC % 0.0 /100WBC < 10/ 100 WBC Neut# 2.43 K/uL Normal 1.8-7.0 Lymph # 1.25 K/uL Normal 1.0-4.0 [place] # 0.41 K/uL Normal 0.3-0.9 Eos # 0.24 K/uL Normal 0.0-0.5 Baso # 0.05 K/uL Normal 0.0-0.1 Immature Grans Absolute 0.01 K/uL NRBC # 0.00 K/uL Comprehensive Metabolic 04/22/2016 [facility] Glucose 88 mg/dL 74-[address] [place], [place] [id number] [phone] BUN 16 mg/dL 7-18 Creatinine 0.8 mg/dL [...] Alkaline Phosphatase 101 U/L 45-117 Laboratory test 04/22/2016 [facility] D-Dimer, < 0.22 [address] Quantitative ug/[place] [address] [phone] Laboratory test 04/22/2016 [facility] CK 136 U/L 26-19 [address] [place], [place] [id number] [phone] Troponin-I < 0.015 ng/mL 10 TSH Reflex FT4 and/or FT3 3.15 uIU/mL 0.30-4.20 11 CBC W/Automated 04/22/2016 [facility] White Blood 3.2 K/uL 3.1-10.[address] [place] [address] [phone] Red Blood Count 5.66 M/uL High 3.90-5.40 [...] Low 40.4-72.8 Lymph % 41.1 % 17.0-46.1 [place] % 13.9 % High 4.3-13.2 Eo% 7.3 % High 0.0-6.6 Bas% 1.9 % High 0.0-1.1 Neut# 1.13 K/uL Low 1.8-7.0 Lymph # 1.30 K/uL Low 1.8-7.0 [place] # 0.44 K/uL 0.3-0.9 Eos # 0.23 K/uL 0.0-0.5 Baso # 0.06 K/uL 0.0-0.1 CBS W/Automated 06/06/2014 [facility] White Blood 3.8 K/uL 3.1-10.[address] [place] [address] [phone] Red Blood Count 4.81 M/uL 3.90-5.40 Hemoglobin [...] % 40.4-72.8 Lymph % 33.5 % 17.0-46.1 [place] % 12.9 % 4.3-13.2 Eo% 5.5 % 0.0-6.6 Bas% 1.8 % High 0.0-1.1 Neut# 1.75 K/uL 1.0-7.0 Lymph # 1.27 K/uL 0.8-3.4 [place] # 0.49 K/uL 0.3-0.9 Eos # 0.21 K/uL 0.0-0.5 Baso # 0.07 K/uL 0.0-0.1 Laboratory test 06/06/2014 [facility] Thyroid Stim 1.79 uIU/mL 0.49-4.[address] [place] [address] [phone] Free T4 1.27 ng/dL 0.71-1.85 Basic Metabolic Panel 06/06/2014 [facility] Glucose 79 mg/dL 76-[address] [place] [address] [phone] BUN 18 mg/dL 5-23 Creatinine 0.9 mg/dL 0.5-1.4 Glom Filtration Rate, Estimate >60 mL/min >60 If >60 mL/min >60 12 BUN/Creat 20.0 ratio Sodium 139 mmol/L 136-145 Potassium 3.5 mmol/L 3.5-5.1 Chloride 105 mmol/L 98-107 Carbon Dioxide 28 mEq/L 18-29 Anion Gap 10 mEq/L 8-16 Calcium 9.0 mg/dL 8.5-10.1 TSH & T4,Free 03/22/2013 [facility] TSH 3.80 mIU/L 0.40-4.50 13, [address] [place] [address] [phone] T4,Free 1.4 ng/dL 0.8-1.8 15 CBC W/ Diff & PLT 03/22/2013 [facility] WBC 3.8 thous/L 3.8-10.[address] [place] [address] [phone] RBC 4.88 mill/L 3.80-5.10 Hemoglobin 14.8 g/dL 11.7-15.5 Hematocrit 44.2 % 35.0-45.0 MCV 90.7 FL 80.0-100.0 MCH 30.3 pg 27.0-33.0 MCHC 33.3 g/dL 32.0-36.0 RDW 14.4 % 11.0-15.0 Platelet Count 251 thous/L 140-400 Neutrophils,Absolute 2230 cells/L [phone] Lymphocytes,Absolute 930 cells/L [phone] Monocytes,Absolute 370 cells/L 200-950 Eosinophils,Absolute 240 cells/L 15-500 Basophils,Absolute 30 cells/L 0-200 Total Neutrophils,% 59 % 38-80 Total Lymphocytes,% 24 % 15-49 Monocytes,% 10 % 0-13 Eosinophils,% 6 % 0-8 Basophils,% 1 % 0-2 Hepatic Function 03/22/2013 [facility] Alkaline Phosphatase 70 U/L 33- [address] [place] [address] [phone] Ast 24 U/L 10-35 Alt 18 U/L 6-40 Bilirubin,Total 0.6 mg/dL 0.2-1.2 Bilirubin,Direct 0.1 mg/dL < Or=0.2 Protein,Total 6.8 g/dL 6.1-8.1 Albumin 4.2 g/dL 3.6-5.1 Globulin,Calculated 2.6 g/dL 1.9-3.7 A/G Ratio 1.6 1.0-2.5 Lipid Panel 03/22/2013 [facility] Cholesterol 181 mg/dL 125-[address] [place] [address] [phone] HDL Cholesterol 57 mg/dL > Or=46 Cholesterol/HDL Ratio 3.2 < Or=5.0 LDL Chol,Calculated 100 mg/dL <130 16 Triglycerides 120 mg/dL <150 Non-HDL Cholesterol 124 mg/dL 17 Comp Metabolic Panel 03/22/2013 [facility] Sodium 140 mmol/L 135-[address] [place] [address] [phone] Potassium 4.1 mmol/L 3.5-5.3 Chloride 106 mmol/L 98-110 Carbon Dioxide 26 mmol/L 19-30 Calcium 9.6 mg/dL 8.6-10.4 Alkaline Phosphatase 70 U/L 33-130 Ast 24 U/L 10-35 Alt 18 U/L 6-40 Bilirubin,Total 0.6 mg/dL 0.2-1.2 Glucose 82 mg/dL 65-99 18 Urea Nitrogen 20 mg/dL 7-25 Creatinine 0.73 mg/dL 0.50-0.99 19 BUN/Creatinine Ratio 26.7 High 6-22 Protein,Total 6.8 g/dL 6.1-8.1 Albumin 4.2 g/dL 3.6-5.1 Globulin,Calculated 2.6 g/dL 1.9-3.7 A/G Ratio 1.6 1.0-2.5 Egfr Non-Afr. Guamanian 84 ML/MIN/1.73M2 > Or=60 Egfr 97 ML/MIN/1.73M2 > Or=60 Vitamin D, 25 03/22/2013 [facility] Vitamin 47 ng/mL 30-[address] D,25-Oh,[place] [address] [phone] Vitamin D,25-Oh,D3 47 ng/mL Vitamin D,25-Oh,D2 <4 ng/mL 20 TSH & T4,Free 07/11/2012 [facility] TSH 2.37 mIU/L 0.40-4.[address] [place] [address] [phone] T4,Free 1.5 ng/dL 0.8-1.8 TSH & T4,Free 03/11/2012 [facility] TSH 4.57 mIU/L High 0.40-4.[address] [place] [address] [phone] T4,Free 1.2 ng/dL 0.8-1.8 Laboratory test finding 03/11/2012 [facility] T3,Free 2.6 pg/mL 2.3-4.[address] [place] [address] [phone] Comp Metabolic Panel 10/02/2011 [facility] Sodium 138 mmol/L 135-[address] [place] [address] [phone] Potassium 3.8 mmol/L 3.5-5.3 Chloride 103 mmol/L [...] 2.2-3.9 A/G Ratio 1.8 1.0-2.1 Egfr Non-Afr. Guamanian 89 ML/MIN/1.73M2 > Or=60 Egfr 103 ML/MIN/1.73M2 > Or=60 CBC W/ Diff & PLT 10/02/2011 [facility] WBC 3.3 thous/L Low 3.8-10.8 [address] [facility] [place] [address] [phone] RBC 4.57 mill/L 3.80-5.10 Hemoglobin 13.9 g/dL 11.7-15.5 Hematocrit 41.3 % 35.0-45.0 MCV 90.4 FL 80.0-100.0 MCH 30.4 pg 27.0-33.0 MCHC 33.6 g/dL 32.0-36.0 RDW 13.8 % 11.0-15.0 Platelet Count 257 thous/L 140-400 Neutrophils,Absolute 1600 cells/L 4752-7344 Lymphocytes,Absolute 1150 cells/L 850-3900 Monocytes,Absolute 330 cells/L 200-950 Eosinophils,Absolute 160 cells/L 15-500 Basophils,Absolute 50 cells/L 0-200 Total Neutrophils,% 49 % 38-80 Total Lymphocytes,% 35 % 15-49 Monocytes,% 10 % 0-13 Eosinophils,% 5 % 0-8 Basophils,% 2 % 0-2 Hepatic Function 10/02/2011 [facility] Alkaline Phosphatase 71 U/L 33- [address] [place], [place] [address] [phone] Ast 32 U/L 10-35 Alt 27 U/L 6-40 Bilirubin,Total 0.7 mg/dL 0.2-1.2 Bilirubin,Direct 0.1 mg/dL < Or=0.2 Protein,Total 6.8 g/dL 6.2-8.3 Albumin 4.3 g/dL 3.6-5.1 Globulin,Calculated 2.5 g/dL 2.2-3.9 A/G Ratio 1.8 1.0-2.1 Laboratory test 10/02/2011 [facility] LDL Cholesterol,Direct 89 mg/dL < 130 [address] [place] [address] [phone] Creatine Kinase,Total 163 U/L High 29-143 TSH & T4,Free 10/02/2011 [facility] TSH,3RD 3.20 mIU/L 0.40-4.[address] [place] [address] [phone] T4,Free 1.1 ng/dL 0.8-1.8 Laboratory test finding 07/01/2011 [facility] Esr,Westergren 1 MM/HR 0- [address] [place] [address] [phone] Jade Screen Ifa W/RFL Titer Ifa NEGATIVE Negative Rheumatoid 07/01/2011 [facility] Rheumatoid Factor 12 IU/mL <14 26 Arthritis Diag PNL [address] [place] [address] [phone] CCP Igg <16 units <20 27 Basic Metabolic Panel 06/19/2011 [facility] Glucose 88 mg/dL 76-[address] [place] [address] [phone] BUN 20 mg/dL 5-23 Creatinine 0.7 mg/dL 0.5-1.4 Glom Filtration Rate, Estimate >60 mL/min >60 If >60 mL/min >60 28 BUN/Creat 28.5 Sodium 140 mEq/L 136-145 Potassium 3.7 mEq/L 3.5-5.1 Chloride 104 mEq/L 98-107 Carbon Dioxide 29 mEq/L 21-32 Anion Gap 11 mEq/L 8-16 Calcium 8.8 mg/dL 8.5-10.1 Laboratory test 06/19/2011 [facility] Cholesterol 183 mg/dL 120-200 29 finding [address] [facility] [place] [address] [phone] Triglycerides 171 mg/dL 0-210 30 Laboratory test 06/19/2011 [facility] HDL Cholesterol 54 mg/dL 32-96 31 finding [address] [facility] [place] [address] [phone] Direct LDL Cholesterol 106 mg/dL High 0-99 32 Vitamin D,25-Hydroxy 57.2 ng/mL 32.0-100.0 33 Thyroid Stim Hormone 3.82 uIU/mL 0.49-4.67 34 Free T4 0.88 ng/dL 0.71-1.85 35 Liver Function 02/16/2011 [facility] Total Protein 7.2 g/dL 6.3-8.0 Tests [address] [facility] [place] [address] [phone] Albumin 4.0 g/dL 3.5-5.0 Bilirubin,Total 0.5 mg/dL 0.2-1.2 Bilirubin,Direct 0.1 mg/dL 0.1-0.4 Bilirubin,Indirect 0.4 mg/dL 0.0-0.9 Sgot/Ast 29 U/L 16-40 SGPT/Alt 39 U/L 30-65 Alkaline Phosphatase 92 U/L 50-136 Globulin 3.2 gm/dL 1.9-4.3 Alb/Glob 1.3 Basic Metabolic Panel 02/16/2011 [facility] Glucose 97 mg/dL 76-[address] [place], [place] [id number] [phone] BUN 24 mg/dL High 5-23 Creatinine 0.8 mg/dL 0.5-1.4 Glom Filtration Rate, Estimate >60 mL/min >60 If >60 mL/min >60 36 BUN/Creat 30.0 Sodium 138 mEq/L 136-145 Potassium 3.5 mEq/L 3.5-5.1 Chloride 102 mEq/L 98-107 Carbon Dioxide 31 mEq/L 21-32 Anion Gap 9 mEq/L 8-16 Calcium 9.0 mg/dL 8.5-10.1 Laboratory test 02/16/2011 [facility] CK 123 U/L 26-190 [address] [place] [address] [phone] LDL Cholesterol 02/16/2011 [facility] Cholesterol 207 mg/dL High 120-[address] [place] [address] [phone] Triglycerides 128 mg/dL 0-210 HDL Cholesterol 58 mg/dL 32-96 LDL-Cholesterol 123 mg/dL 62-185 LDL Cholesterol 09/15/2010 [facility] Cholesterol 161 mg/dL 120-[address] [place] [address] [phone] Triglycerides 94 mg/dL 0-210 HDL Cholesterol 55 mg/dL 32-96 LDL-Cholesterol 87 mg/dL 62-185 CBS W/Automated 09/15/2010 [facility] White Blood 3.7 K/uL 3.1-10.[address] Count [place], [place] [id number] [phone] Red Blood Count 4.73 M/uL 3.90-5.40 Hemoglobin 13.4 gm/dL 11.6-15.8 Hematocrit 41.7 % 36.0-46.1 Mean Cell Volume 88.2 fl 80.9-99.0 Mean Corpuscular HGB 28.3 pg 25.9-32.7 Mean Corpuscular HGB Conc 32.1 g/dL 30.8-34.3 Platelet Count 312 K/uL 155-360 Red Cell Distri Width %CV 13.4 % 11.7-14.4 Mean Platelet Volume 11.8 fL 8.9-12.4 Neut% 47.5 % 40.4-72.8 Lymph % 31.6 % 17.0-46.1 [place] % 12.2 % 4.3-13.2 Eo% 6.5 % 0.0-6.6 Bas% 2.2 % High 0.0-1.1 Neut# 1.8 K/uL 1.0-7.0 Lymph # 1.2 K/uL 0.8-3.4 [place] # 0.5 K/uL 0.3-0.9 Eos # 0.2 K/uL 0.0-0.5 Baso # 0.1 K/uL 0.0-0.1 Red Cell Distri Width SD 42.1 fl 3-47 Laboratory test 09/15/2010 [facility] Thyroid Stim 2.54 uIU/mL 0.49-4.67 [address] Hormone [place], [place] [address] [phone] Free T4 1.10 ng/dL 0.71-1.85 39 Comprehensive Metabolic 09/15/2010 [facility] Glucose 79 mg/dL 76-[address] [place], [place] [address] [phone] BUN 21 mg/dL 5-23 Creatinine 0.8 mg/dL [...] Phosphatase 84 U/L 50-136 Liver Function 09/15/2010 [facility] Total Protein 6.8 g/dL 6.3-8.[address] [place] [address] [phone] Albumin 3.7 g/dL 3.5-5.0 Bilirubin,Total 0.8 mg/dL 0.2-1.2 Bilirubin,Direct 0.2 mg/dL 0.1-0.4 Bilirubin,Indirect 0.6 mg/dL 0.0-0.9 Sgot/Ast 23 U/L 16-40 SGPT/Alt 34 U/L 30-65 Alkaline Phosphatase 84 U/L 50-136 Globulin 3.1 gm/dL 1.9-4.3 Alb/Glob 1.2 Basic Metabolic Panel 05/07/2010 [facility] Glucose 86 mg/dL 76-[address] [place] [address] [phone] BUN 18 mg/dL 5-23 Creatinine 0.7 mg/dL 0.5-1.4 Glom Filtration Rate, Estimate >60 mL/min >60 If >60 mL/min >60 41 BUN/Creat 25.7 Sodium 143 mEq/L 136-145 Potassium 4.1 mEq/L 3.5-5.1 Chloride 108 mEq/L High 98-107 Carbon Dioxide 31 mEq/L 21-32 Anion Gap 8 mEq/L 8-16 Calcium 8.8 mg/dL 8.5-10.1 Laboratory test 05/07/2010 [facility] Vitamin 41.8 32.0-100.0 [address] D,25-Hydroxy ng/[place] [address] [phone] Thyroid Stim Hormone 2.46 uIU/mL 0.49-4.67 Free T3 2.64 pg/mL 1.45-3.48 Free T4 0.96 ng/dL 0.71-1.85 TSH+Free T4 02/06/2010 [facility] Thyroid Stim 3.83 uIU/mL 0.49-4.67 ([place] & [address] Hormone [facility] [place] [place] [address] [phone] Free T4 0.85 ng/dL 0.71-1.85 Laboratory test 02/06/2010 [facility] Free T3 1.77 pg /mL 1.45-3.[address] [place] [address] [phone] Basic Metabolic 02/06/2010 [facility] Glucose 89 mg/ dL 76-[address] [place] [address] [phone] BUN 18 mg/dL 5-23 Creatinine 0.7 mg/dL 0.5-1.4 Glom Filtration Rate, Estimate >60 mL/min >60 If >60 mL/min >60 43 BUN/Creat 25.7 Sodium 138 mEq/L 136-145 Potassium 3.7 mEq/L 3.5-5.1 Chloride 102 mEq/L 98-107 Carbon Dioxide 29 mEq/L 21-32 Anion Gap 11 mEq/L 8-16 Calcium 9.0 mg/dL 8.5-10.1 Laboratory 02/06/2010 [facility] Vitamin 30.1 Low 32.0-100.0 44 test finding [address] D,25-Hydroxy ng/[place] [address] [phone] Vitamin D,1,25 Dihydroxy 42.5 pg/mL 10.0-75.0 45 CBC W/Automated 09/13/2009 [facility] White Blood 5.9 K/uL 3.1-10.[address] [place] [address] [phone] Red Blood Count 4.63 M/uL 3.90-5.40 Hemoglobin 13.4 gm/dL 11.6-15.8 Hematocrit 40.2 % 36.0-46.1 Mean Cell Volume 86.8 fl 80.9-99.0 Mean Corpuscular HGB 28.9 pg 25.9-32.7 Mean Corpuscular HGB Conc 33.3 g/dL 30.8-34.3 Platelet Count 299 K/uL 155-360 Red Cell Distri Width %CV 13.0 % 11.7-14.4 Mean Platelet Volume 11.3 fL 8.9-12.4 Neut% 67.9 % 40.4-72.8 Lymph % 19.0 % 17.0-46.1 [place] % 7.8 % 4.3-13.2 Eo% 4.6 % 0.0-6.6 Bas% 0.7 % 0.0-1.1 Neut# 4.0 K/uL 1.0-7.0 Lymph # 1.1 K/uL 0.8-3.4 [place] # 0.5 K/uL 0.3-0.9 Eos # 0.3 K/uL 0.0-0.5 Baso # 0.0 K/uL 0.0-0.1 Red Cell Distri Width SD 40 fl 3-47 Laboratory test 09/13/2009 [facility] Bilirubin, Direct 0.1 mg/dL 0.1-0.[address] [place] [address] [phone] CK 89 U/L 26-190 Thyroid Stim Hormone 3.83 uIU/mL 0.49-4.67 Free T4 0.87 ng/dL 0.71-1.85 LDL Cholesterol 09/13/2009 [facility] Cholesterol 190 mg/dL 120-[address] [place], [place] [address] [phone] Triglycerides 115 mg/dL 0-210 HDL Cholesterol 52 mg/dL 32-96 LDL-Cholesterol 115 mg/dL 62-185 Comprehensive Metabolic 09/13/2009 [facility] Glucose 78 mg/dL 76-[address] [place] [address] [phone] BUN 22 mg/dL 5-23 Creatinine 0.9 mg/dL [...] U/L 30-65 Alkaline Phosphatase 86 U/L 50-136 Laboratory test 05/27/2009 [facility] Vitamin 35.8 32.0-100.0 [address] D,25-Hydroxy ng/[place] [address] [phone] Vitamin D,1,25 Dihydroxy 70.4 pg/mL High 15.9-55.6 Thyroid Stim Hormone 3.45 uIU/mL 0.49-4.67 Free T3 2.43 pg/mL 1.45-3.48 Free T4 0.86 ng/dL 0.71-1.85 Basic Metabolic Panel 05/27/2009 [facility] Glucose 79 mg/dL 76-[address] [place] [address] [phone] BUN 16 mg/dL 5-23 Creatinine 0.8 mg/dL 0.5-1.4 Glom Filtration Rate, Estimate >60 mL/min >60 If >60 mL/min >60 48 BUN/Creat 20.0 Sodium 136 mEq/L 136-145 Potassium 4.3 mEq/L 3.5-5.1 Chloride 103 mEq/L 98-107 Carbon Dioxide 31 mEq/L 21-32 Anion Gap 6 mEq/L Low 8-16 Calcium 8.8 mg/dL 8.5-10.1 Laboratory 03/06/2009 [facility] Vitamin 29.5 Low 32.0-100.0 49 test finding [address] D,25-Hydroxy ng/[place] [address] [phone] Thyroid Stim Hormone 2.02 uIU/mL 0.49-4.67 Free T4 1.14 ng/dL 0.71-1.85 CBC 03/06/2009 [facility] White Blood Count 4.7 K/uL 3.1-10.[address] [place] [address] [phone] Red Blood Count 4.71 M/uL 3.90-5.40 Hemoglobin 13.4 gm/dL 11.6-15.8 Hematocrit 40.4 % 36.0-46.1 Mean Cell Volume 85.8 fl 80.9-99.0 Mean Corpuscular HGB 28.5 pg 25.9-32.7 Mean Corpuscular HGB Conc 33.2 g/dL 30.8-34.3 Platelet Count 304 K/uL 155-360 Red Cell Distri Width %CV 13.7 % 11.7-14.4 Mean Platelet Volume 11.9 fL 8.9-12.4 LDL Cholesterol 02/11/2009 [facility] Cholesterol 189 mg/dL 120-[address] [place] [address] [phone] Triglycerides 126 mg/dL 0-210 HDL Cholesterol 54 mg/dL 32-96 LDL-Cholesterol 110 mg/dL 62-185 Liver Function 02/11/2009 [facility] Total Protein 7.2 g/dL 6.3-8.[address] [place] [address] [phone] Albumin 3.8 g/dL 3.5-5.0 Bilirubin,Total 0.6 mg/dL 0.2-1.2 Bilirubin,Direct 0.1 mg/dL 0.1-0.4 Bilirubin,Indirect 0.5 mg/dL 0.0-0.9 Sgot/Ast 22 U/L 16-40 SGPT/Alt 36 U/L 30-65 Alkaline Phosphatase 96 U/L 50-136 Globulin 3.4 gm/dL 1.9-4.3 Alb/Glob 1.1 Laboratory test 02/11/2009 [facility] CK 69 U/L 26 -[address] [place] [address] [phone] Basic Metabolic Panel 02/11/2009 [facility] Glucose 84 mg/dL 76-[address] [place] [address] [phone] BUN 21 mg/dL 5-23 Creatinine 0.8 mg/dL 0.5-1.4 Glom Filtration Rate, Estimate >60 mL/min >60 If >60 mL/min >60 50 BUN/Creat 26.2 Sodium 138 mEq/L 136-145 Potassium 4.0 mEq/L 3.5-5.1 Chloride 103 mEq/L 98-107 Carbon Dioxide 28 mEq/L 21-32 Anion Gap 11 mEq/L 8-16 Calcium 9.1 mg/dL 8.5-10.1 Laboratory test 02/11/2009 [facility] Glycohemoglobin A1c 6.1 % High 4.8-6.0 [address] [place] [address] [phone] Vitamin D,1,25 Dihydroxy 33.9 pg/mL 15.9-55.6 CBC With 01/17/2009 [facility] White Blood 17.9 CUMM High 4.8- 10.8 Manual Diff [address] [place] [address] [phone] Red Cell Count 4.57 CUMM 4.2-5.4 Hemoglobin [...] 16.1 RBC Morphology NORMAL Laboratory test 01/17/2009 [facility] Erythrocyte Sed 9 MM/HR 0-[address] [place] [address] [phone] CPK (Creatine Kinase) 111 U/L 0-170 TSH 1.58 MIU/ML 0.34-5.60 Laboratory test 11/20/2008 [facility] Thyroid Stim 2.92 uIU/mL 0.49-4.[address] [place] [address] [phone] Free T3 1.79 pg/mL 1.45-3.48 Free T4 0.90 ng/dL 0.71-1.85 Basic Metabolic Panel 11/20/2008 [facility] Glucose 83 mg/dL 76-[address] [place], [place] [id number] [phone] BUN 17 mg/dL 5-23 Creatinine 0.8 mg/dL 0.5-1.4 Glom Filtration Rate, Estimate >60 mL/min >60 If >60 mL/min >60 52 BUN/Creat 21.2 Sodium 142 mEq/L 136-145 Potassium 4.4 mEq/L 3.5-5.1 Chloride 105 mEq/L 98-107 Carbon Dioxide 28 mEq/L 21-32 Anion Gap 13 mEq/L 8-16 Calcium 9.7 mg/dL 8.5-10.1 Laboratory test 08/06/2008 [facility] Cancer 10.4 U/ mL 0.0-35.0 [address] Antigen ([place]) [place] [address] [phone] Thyroid Stim Hormone 3.01 uIU/mL 0.49-4.67 Free T3 1.72 pg/mL 1.45-3.48 Free T4 0.91 ng/dL 0.71-1.85 Basic Metabolic Panel 08/06/2008 [facility] Glucose 81 mg/dL 76-[address] [place], [place] [id number] [phone] BUN 24 mg/dL High 5-23 Creatinine 0.9 mg/dL 0.5-1.4 BUN/Creat 26.6 Sodium 137 mEq/L 136-145 Potassium 3.9 mEq/L 3.5-5.1 Chloride 101 mEq/L 98-107 Carbon Dioxide 30 mEq/L 21-32 Anion Gap 10 mEq/L 8-16 Calcium 9.3 mg/dL 8.5-10.1 Laboratory test 07/12/2008 [facility] Thyroid Stim 4.41 uIU/mL 0.49-4.[address] Horm[place], [place] [id number] [phone] Free T3 2.07 pg/mL 1.45-3.48 Free T4 1.01 ng/dL 0.71-1.85 CMP 07/12/2008 [facility] Glucose 86 mg/dL 76-[address] [place], [place] [id number] [phone] BUN 16 mg/dL 5-23 Creatinine 1.0 mg/dL [...] Phosphatase 85 U/L 50-136 LDL Cholesterol 07/12/2008 [facility] Cholesterol 208 mg/dL High 120-[address] [place], [place] [id number] [phone] Triglycerides 158 mg/dL 0-210 HDL Cholesterol 54 mg/dL 32-96 LDL-Cholesterol 122 mg/dL 62-185 Laboratory test 07/12/2008 [facility] CK 102 U/L 26-[address] [place], [place] [id number] [phone] CBC W/Automated 07/12/2008 [facility] White Blood 4.2 K/uL 3.1-10.[address] [place], [place] [id number] [phone] Red Blood Count 5.02 M/uL 3.90-5.40 Hemoglobin 14.2 gm/dL 11.6-15.8 Hematocrit 43.1 % 36.0-46.1 Mean Cell Volume 85.9 fl 80.9-99.0 Mean Corpuscular HGB 28.3 pg 25.9-32.7 Mean Corpuscular HGB Conc 32.9 g/dL 30.8-34.3 Platelet Count 281 K/uL 155-360 Red Cell Distri Width %CV 12.8 % 11.7-14.4 Mean Platelet Volume 11.1 fL 8.9-12.4 Neut% 60.2 % 40.4-72.8 Lymph % 24.2 % 17.0-46.1 [place] % 8.4 % 4.3-13.2 Eo% 6.0 % 0.0-6.6 Bas% 1.2 % High 0.0-1.1 Neut# 2.5 K/uL 1.0-7.0 Lymph # 1.0 K/uL 0.8-3.4 [place] # 0.4 K/uL 0.3-0.9 Eos # 0.3 K/uL 0.0-0.5 Baso # 0.1 K/uL 0.0-0.1 Red Cell Distri Width SD 40 fl 3-47 Sensitivities 07/09/2008 [facility] Amoxicillin/Clavulanate <=8/4 Susceptible [address] [place] [address] [phone] Ampicillin 16 Intermediate Ampicillin/Sulbact <=8/4 Susceptible Aztreonam [...] Susceptible Tobramycin <=2 Susceptible Trimethoprim/Sulfa <=2/38 Susceptible 54 Culture,Urine,Voided 07/09/2008 [facility] Source URINE-CC [address] [place] [address] [phone] Preliminary Report DNR Interim Report DNR Final Report DNR Organism #1 (SEE NOTE) 55 Organism #2 DNR Organism #3 DNR Organism #4 DNR 4399 DNR 1 [id number] SEE RESULT BELOW Name: BLAIRE MENESES : [address]: Mauro Manning MD Acct: [id number] Unit: [id number] AGE: 73 Location: [facility] Re04/26/19 SEX: F Status: DEP ER SPEC: [id number] LUIS: 04/26/19-[address] [facility] [address]: Mauro Manning MD REQ: [id number] RECD: 04/26/19-2007 STATUS: YFN VILLANUEVA DR: Sedrick Herman MD _ SOURCE: FOOT,RIGHT SPDESC: ORDERED: Culture Stain COMMENTS: [id number] Procedure Result Reported Site Wound/Misc Gram Stain Final 04/27/19- 0710 ML 1+ Epithelial Cells No Neutrophils Observed No Organisms Seen Wound/Misc Culture Final 04/28/19- 1234 ML No Growth Day 2 * ML - Main Lab . END OF REPORT DEPARTMENT OF PATHOLOGY, [address] [place] [address] Maikel Lindquist M.D. Director [facility] # [id number] 3 CHEST PAIN 4 0.0 - 0.045 [...] information may be found at www.kdoqi.org. 8 <=0.49 ug/mL - Low likelihood of DIC, DVT or Pulmonary Embolism >0.49 ug/mL - Additional testing should be done to rule out DIC, DVT, or Pulmonary embolism as clinically indicated. ([facility] has established a 97.89% negative predictive value for thrombotic disease when a cutoff value of 0.5 ug/mL is used.) 9 SPECIMEN IS SLIGHTLY LIPEMIC 10 0.0 - 0.045 ng/mL: Normal 0.046 - 0.5 ng/mL: Suggestive 0.6 - 1.5 ng/mL: Consistent 11 SPECIMEN IS SLIGHTLY LIPEMIC QUERY: Reflex add FT3? Y QUERY: Reflex add FT4? Y 12 Note: Persistent reduction for 3 months or more in an eGFR <60 mL/min/1.73 m2 defines CKD. Patients with eGFR values >/=60 mL/min/1.73 m2 may also have CKD if evidence of persistent proteinuria is present. The original MDRD equation for estimated GFR is not valid for patients less than 18 years of age. Additional information may be found at www.kdoqi.org. 13 FASTING 14 REFERENCE RANGES BELOW ARE APPLICABLE TO FEMALES FIRST TRIMESTER - 0.26 - 2.66 mIU/L SECOND TRIMESTER - 0.55 - 2.73 mIU/L THIRD TRIMESTER - 0.43 - 2.91 mIU/L 15 THE CURRENT LOT OF FREE T4 REAGENT AVAILABLE FROM THE [employer] PRODUCES RESULTS THAT ARE APPROXIMATELY 9% HIGHER THAN PREVIOUS REAGENT LOTS. PLEASE INTERPRET THESE RESULTS ACCORDINGLY. 16 LDL-CHOLESTEROL RISK CATEGORY* GOAL VERY HIGH (E.G. DIABETES + CVD) <70 MG/DL HIGH (DIABETICS; CHD RISK EQUIVALENTS) <100 MG/DL MODERATELY HIGH (MULTIPLE(2+) RISK FACTORS) <130 MG/DL 0 TO 1 RISK FACTORS <160 MG/DL * NCEP REPORT. CIRCULATION 2004; 110: 227-239 17 Target for non-HDL cholesterol is 30 mg/dL higher than LDL cholesterol target. 18 GLUCOSE REFERENCE RANGE BASED ON FASTING SPECIMEN. 19 The upper reference limit for Creatinine is approximately 13% higher for people identified as -[place]. 20 25-OHD3 indicates both endogenous production and supplementation. 25-OHD2 is an indicator of exogenous sources such as diet or supplementation. Therapy is based on measurement of Total 25-OHD, with levels <20 ng/mL indicative of Vitamin D deficiency while levels between 20 ng/mL and 30 ng/mL suggest insufficiency. Optimal levels are > or=30ng/mL. For more information on this test, go to http://education.Curex.Co.ProtoShare/faq/25-OHVitaminD 21 REFERENCE RANGES BELOW ARE APPLICABLE TO [...] may be found at www.[email or web address]. 29 QUERY: @EMR Pat ID: [id number] QUERY: @EMR Req #: [id number] 30 QUERY: @EMR Pat ID: [id number] QUERY: @EMR Req #: [id number] 31 QUERY: @EMR Pat ID: [id number] QUERY: @EMR Req #: [id number] 32 Performed at: [facility] [id number] Meat And Poultry Inspector: Matias See MD, Phone: [phone] 33 Recent studies consider the lower limit of 32.0 ng/mL to be a threshold for optimal health. Vic LYNCH. J Nutr. 2005 Dec;135(2):317-22. Performed at: RN - [facility] [address] [id number] Meat And Poultry Inspector: Matias See MD, Phone: [phone] 34 QUERY: @EMR Pat ID: [id number] QUERY: @EMR Req #: [id number] 35 QUERY: @EMR Pat ID: [id number] QUERY: @EMR Req #: [id number] 36 Note: Persistent reduction for 3 months [...] at www.kdoqi.org. 37 QUERY: @EMR Pat ID: [id number] QUERY: @EMR Req #: [id number] 38 QUERY: @EMR Pat ID: [id number] QUERY: @EMR Req #: [id number] QUERY: @EMR Pat ID: [id number] QUERY: @EMR Req #: [id number] 40 Note: Persistent reduction for 3 months [...] Nutr. 2004;135(2):317-22. Performed at: RN - [facility] [address] [id number] Meat And Poultry Inspector: Matias See MD, Phone: [phone] 43 Note: Persistent reduction for 3 months [...] be a threshold for optimal health. Ho BW. J Nutr. 2004;135(2):317-22. 45 Performed at: - [facility] [place] [address] [place], [place] [id number] Meat And Poultry Inspector: Matias See MD Performed at: - [facility] [address] [id number] Meat And Poultry Inspector: Mauro Wells MD 46 Note: Persistent reduction [...] information may be found at www.kdoqi.org. 47 Recent studies consider the lower limit of 32.0 ng/mL to be a threshold for optimal health. Ho BW. J Nutr. 2004;135(2):317-22. 48 Note: Persistent reduction for 3 months or more in an eGFR <60 mL/min/1.73 m2 defines CKD. Patients with eGFR values >/=60 mL/min/1.73 m2 may also have CKD if evidence of persistent proteinuria is present. The original MDRD equation for estimated GFR is not valid for patients less than 18 years of age. Additional information may be found at www.kdoqi.org. 49 Recent studies consider the lower limit of 32.0 ng/mL to be a threshold for optimal health. Ho BW. J Nutr. 2004;135(2):317-22. 50 Note: Persistent reduction for 3 months [...] presence or absence of malignant disease. 54 No collection date was received. We have used the date the specimen was received by [facility] as the collection date. If this is incorrect, please contact us at [phone]. 55 ESCHERICHIA COLI GREATER THAN 100,000 CFU/ML Procedures Date Code Description Status 06/05/2014 10010 Echocardiography Completed 03/24/2012 [id number] Bone Mineral Density Test Completed 03/24/2012 43548 Bone Density,Vertebral Fracture Completed 03/24/2012 99264 Bone Density Completed 10/02/2011 76682 Holter Monitor Office Completed 09/28/2011 81739 Non-Invcorrotid/Comp /Bilat Study Completed 09/28/2011 88655 Echocardiography Completed 09/15/2010 70738 EKG-Tracing & Report Completed 09/15/2010 11997 Holter Monitor Office Completed 09/15/2010 39389 PVR-Atrerial Study Completed 09/15/2010 29419 PFT Evaluation Completed 09/02/2010 81520 Non-Invcorrotid/Comp /Bilat Study Completed 09/02/2010 47058 Echocardiography Completed 09/19/2009 87048 Holter Monitor Office Completed 09/19/2009 98680 EKG-Tracing & Report Completed 09/18/2009 39463 Bone Density,Vertebral Fracture Completed 09/18/2009 73890 Bone Density Completed 08/06/2009 47917 Non-Invcorrotid/Comp /Bilat Study Completed 08/06/2009 85984 Echocardiography Completed 07/19/2008 27369 Non-Invcorrotid/Comp /Bilat Study Completed 07/19/2008 25522 Doppler Color Flow Velocity Completed 07/19/2008 05621 Doppler/ECHO Completed 07/19/2008 66936 ECHO-2D W/Wo M-Mode Completed 03/01/2006 09199026 Colonoscopy Completed Encounters Type Date Location Provider [...] Examination Dental GENERAL General Plan of Treatment 05/10/2019 - Carmen Ahmadi Medication:Carvedilol 12.5 mg - 1 by mouth twice a dayNitroglycerin 0.4 mg - 1 sl every 5 min as neededAtorvastatin Calcium 10 mg - 1 by mouth every day
--- NOTE | 2019-06-02 09:29 | UC ---
Dizzy HPI HPI Summary: Ms. Meneses woke up this morning with severe dizziness accompanied by nausea and vomiting. She does have a buzzing sound in her head. It is bad when she sits still and feels a little bit better when she is up moving around. Lying down is the worst. She thinks she's had some congestion for about a week and attributes it to that as she had some sort of infection one time very remotely that caused vertigo. - History Of Current Complaint Chief Complaint: UCDizziness Stated Complaint: LIGHT-HEADED,DIZZY,NAUSEA Time Seen by Provider: 06/02/19 09:23 Hx Obtained From: Patient Onset/Duration: Sudden Onset Timing: Constant Severity Initially: Severe Severity Currently: Severe Pain Intensity: 0 Character: Room Spinning Alleviating Factor(s): Turning Head Associated Signs And Symptoms: Positive: Tinnitus - Buzzing - Risk Factors Cardiac Risk Factors: Hypertension, Elevated Lipids, Prior VT, CAD CVA Risk Factor: Hypertension, Recent VT, Hyperlipidemia - Allergies/Home Medications Allergies/Adverse Reactions: Allergies Allergy/AdvReac Type Severity Reaction Status Date / Time gabapentin Allergy out of Verified 06/02/19 09:10 body experience morphine Allergy convulsions Verified 06/02/19 09:10 Home Medications: Home Medications Clopidogrel TAB* [Plavix TAB*] 75 mg PO DAILY 06/02/19 [History Confirmed ] PMH/Surg Hx/FS Hx/Imm Hx Endocrine History: Dyslipidemia Cardiovascular History: Cardiac Disease, Hypertension - Surgical History Surgical History: Yes Surgery Procedure, Year, and Place: left arm surgery age 18yrs. partial hysterectomy - Family History Known Family History: Positive: Hypertension - Social History Alcohol Use: 1 glass wine/daily Alcohol Amount: 1 wine daily Substance Use Type: None Smoking Status (MU): Former Smoker Length of Time of Smoking/Using Tobacco: 3 PPD x 3 Years When Did the Patient Quit Smoking/Using Tobacco: 1962 - Immunization History Most Recent Influenza Vaccination: not this season Most Recent Tetanus Shot: Unknown, pt thinks within 10 yrs Review of Systems All Other Systems Reviewed And Are Negative: Yes Constitutional: Positive: Negative Skin: Positive: Negative Eyes: Positive: Negative ENT: Positive: Sinus Congestion Respiratory: Positive: Negative Cardiovascular: Positive: Negative Neurological: Positive: Negative Physical Exam - Summary Physical Exam Summary: She is nontoxic in appearance with stable vitals. Triage Information Reviewed: Yes Appearance: Well-Appearing Vital Signs: Initial Vital Signs Temp 97.4 F 06/02/19 08:56 Pulse 70 06/02/19 08:56 Resp 20 06/02/19 08:56 BP 211/104 06/02/19 08:56 Pulse Ox 100 06/02/19 08:56 Vital Signs Reviewed: Yes Eye Exam: Normal - I'm not seeing any significant nystagmus ENT: Positive: Normal ENT inspection Neck exam: Normal - No bruits Respiratory Exam: Normal Cardiovascular Exam: Normal Diagnostics - EKG Cardiac Rate: NL Cardiac Rhythm: Sinus: Normal Ectopy: None ST Segment: Normal Dizzy Course/Dx - Course Course Of Treatment: This vertigo has elements of potential central source. She has multiple risk factors. Her blood pressure is high here but she has been unable to take her medication this morning because of vomiting. I recommended that we transfer her to [facility] ED in case this does prove to be central in origin. She is unwilling to go to [facility] or to go by ambulance. She does reassure me that her neighbor who is with her in the room will take her to [facility]. I called [facility] and gave them a heads up. - Differential Dx/Diagnosis Provider Diagnosis: Vertigo Discharge - Sign-Out/Discharge Documenting (check all that apply): Patient Departure All imaging exams completed and their final reports reviewed: No Studies - Discharge Plan Condition: Stable Disposition: HOME-RECOMMEND TO ED Referrals: Sedrick Herman MD [Primary Care Provider] - - Billing Disposition and Condition Condition: STABLE Disposition: Home-Recommend to ED
== END 2019-06-02 09:42 | disposition home health service (06) ==
LOC: UCCORT 08:51
DX: R42 Dizziness and giddiness (principal); Z79.01 Long term (current) use of anticoagulants; I11.9 Hypertensive heart disease without heart failure; Z87.891 Personal history of nicotine dependence
CPT/HCPCS: 99212; G0463